=== PATIENT | male | born 1945 | race Caucasian/White ===

== ENCOUNTER 2017-09-07 13:11 | Emergency (ER) | payer OTHER, MEDICARE ==
[~2017-09-07] VITALS: Ht 165.1 cm; Wt 110.3 kg
[~2017-09-07 13:11] MED LIST: ALBU90OI61 INH; ASPI325; B-121000 MC2 PO; DIGO.125 PO; DIGO.25; DIGO.25 PO; DILT300 PO; FELO5CR; FURO20; FURO20 PO; FURO40 PO; GLIP5; HYDCHL25; INS70/30I; INSUASPI SC; INSULANPEN SC; LEVSOD100; LEVSOD100 PO; LISI20; LOSA25 PO; LOSARTAN POTAS100 MG PO; LOVA40; METF500; METF850; METO100; METO100ER; METO100ER PO; METO50ER PO; Micro-K10 MEQ PO; Nitrostat0.4 MG SL; Novolog100 UNIT/2 SC; Pravastatin Sod40 MG PO; SERT100; SPIR25 PO; TAMS.4ER PO; TERA1; TERA5; WARF5; WARF5 PO; WARF7.5 PO; [UNRECOGNIZED DRUG - CODE]; [UNRECOGNIZED DRUG - CODE]; [UNRECOGNIZED DRUG - OTHER]
[2017-09-07] MEDS ORDERED: SPIR25 PO (14:10)
[2017-09-07 14:36] LABS: BASOPHILS ABSOLUTE AUTO 0.04 K/mm3 (0.00-0.23); BASOPHILS PERCENT AUTO 1 % (0-2); EOSINOPHILS PERCENT AUTO 4 % (0-6); Hematocrit 39.6 % (37.0-53.0); Hemoglobin 13.5 g/dL (13.5-17.5); IMMATURE GRAN ABSOLUTE AUTO 0.02 K/mm3 (0.00-0.10); IMMATURE GRAN PERCENT AUTO 0 % (0-1); LYMPHOCYTES ABSOLUTE AUTO 1.43 K/mm3 (0.84-5.20); LYMPHOCYTES PERCENT AUTO 20 % (21-46); MONOCYTES ABSOLUTE AUTO 0.58 K/mm3 (0.16-1.47); MONOCYTES PERCENT AUTO 8 % (4-13); Mean Corpuscular HGB 32.1 pg (26.0-34.0); Mean Corpuscular HGB Conc 34.1 g/dL (31.5-36.5); Mean Corpuscular Volume 94 fL (80-100); Mean Platelet Volume 9.6 fL (9.1-12.4); NEUTROPHILS ABSOLUTE AUTO 4.78 K/mm3 (1.96-9.15); NEUTROPHILS PERCENT AUTO 67 % (41-73); Platelet Count 159 K/mm3 (150-400); RDW Coefficient Variation 13.4 % (11.7-14.2); RDW Standard Deviation 45.8 fL (35.1-46.3); White Blood Cell Count 7.15 K/mm3 (4.00-11.30)
[2017-09-07 14:47] LABS: International Normalized Ratio 3.08; Prothrombin Time Results 33.2 Sec (9.7-11.5)
== END 2017-09-07 16:11 | disposition home or self-care (01) ==
LOC: ER 13:11
PROVIDERS: Emergency Medicine
DX: R04.0 Epistaxis (principal); Z88.8 Allergy status to other drugs, medicaments and biological substances; Z79.01 Long term (current) use of anticoagulants; Z79.899 Other long term (current) drug therapy; Z79.4 Long term (current) use of insulin; E11.9 Type 2 diabetes mellitus without complications; I10 Essential (primary) hypertension; I48.91 Unspecified atrial fibrillation; E78.00 Pure hypercholesterolemia, unspecified
CPT/HCPCS: 30901; 36415; 82947; 85025; 85610; 99283

== ENCOUNTER 2018-07-13 11:45 | Day surgery (SDC) | payer MEDICARE, OTHER ==
[~2018-07-13] VITALS: Ht 167.6 cm; Wt 111.9 kg
[2018-07-13 11:02] LABS: International Normalized Ratio 1.16; Prothrombin Time Results 11.8 Sec (9.7-11.5)
== END 2018-07-13 15:02 | disposition home or self-care (01) ==
LOC: ORSCSDS 11:45
PROVIDERS: Orthopaedic Surgery
PROC: 01N50ZZ Release Median Nerve, Open Approach (ICD-10-PCS; principal; 2018-07-13 13:15)
DX: G56.02 Carpal tunnel syndrome, left upper limb (principal); E11.42 Type 2 diabetes mellitus with diabetic polyneuropathy; I48.91 Unspecified atrial fibrillation; I10 Essential (primary) hypertension; Z95.0 Presence of cardiac pacemaker; E03.9 Hypothyroidism, unspecified; E66.01 Morbid (severe) obesity due to excess calories; Z68.39 Body mass index [BMI] 39.0-39.9, adult; Z79.01 Long term (current) use of anticoagulants; Z79.4 Long term (current) use of insulin; Z79.899 Other long term (current) drug therapy
CPT/HCPCS: 36415; 82947; 83036; 85610; 85730; J0690; J2250; J2370; J2405; J3010; J7120

== ENCOUNTER 2019-10-01 12:25 | Emergency (ER) | payer OTHER, MEDICARE ==
[~2019-10-01] VITALS: Ht 167.6 cm; Wt 100.2 kg
[~2019-10-01 12:25] MED LIST changes: +ELIQUIS5 MG PO; +METOPROLOL TART75 MG PO
[2019-10-01] MEDS ORDERED: CEPH500 PO (13:58)
== END 2019-10-01 14:07 | disposition home or self-care (01) ==
LOC: ER 12:25
DX: S61.052A Open bite of left thumb without damage to nail, initial encounter (principal); L03.012 Cellulitis of left finger; E11.9 Type 2 diabetes mellitus without complications; I48.91 Unspecified atrial fibrillation; E03.9 Hypothyroidism, unspecified; E78.5 Hyperlipidemia, unspecified; I11.0 Hypertensive heart disease with heart failure; I50.9 Heart failure, unspecified; Z87.891 Personal history of nicotine dependence; Z23 Encounter for immunization; Z79.899 Other long term (current) drug therapy; Z79.4 Long term (current) use of insulin; W54.0XXA Bitten by dog, initial encounter
CPT/HCPCS: 73140; 90471; 90714; 99283-25; A9270-GY

== ENCOUNTER 2020-06-19 10:01 | Day surgery (SDC) | payer MEDICARE, OTHER ==
[~2020-06-19] VITALS: Ht 167.6 cm; Wt 104.5 kg
[~2020-06-19 10:01] MED LIST changes: +Aspirin EC81 MG PO; +BASAGLAR K100 UNIT/1 SC; +CEPH500 PO; +ELIQUIS5 M2 PO; +HYDSUL200 PO; +LEVOTHYROXINE100 MCG IM; +METO100 PO; +NITROGLYCERIN0.4 M1 SL; +NOVOLOG FL100 UNIT/3; +OLIVE LEAF EXT250 MG; +PROAIR RESPICL90 MCG INH
== END 2020-06-19 15:20 | disposition home or self-care (01) ==
LOC: ORSCSDS 10:01
PROVIDERS: Orthopaedic Surgery
PROC: 01N50ZZ Release Median Nerve, Open Approach (ICD-10-PCS; principal; 2020-06-19 11:15)
DX: G56.01 Carpal tunnel syndrome, right upper limb (principal); E11.9 Type 2 diabetes mellitus without complications; E03.9 Hypothyroidism, unspecified; I10 Essential (primary) hypertension; E78.5 Hyperlipidemia, unspecified; I48.91 Unspecified atrial fibrillation; Z79.01 Long term (current) use of anticoagulants; I25.10 Atherosclerotic heart disease of native coronary artery without angina pectoris; J44.9 Chronic obstructive pulmonary disease, unspecified; Z87.891 Personal history of nicotine dependence; Z79.899 Other long term (current) drug therapy; Z79.82 Long term (current) use of aspirin; E66.01 Morbid (severe) obesity due to excess calories; Z68.37 Body mass index [BMI] 37.0-37.9, adult
CPT/HCPCS: 82947; J0171; J0690; J1100; J2370; J2405; J2704; J3010; J7120

== ENCOUNTER → 2020-07-05 | Outpatient (CLI) | payer MEDICARE, OTHER | END | disposition home or self-care (01) | LOC: LAB 13:25 | DX: L02.424 Furuncle of left upper limb (principal); L02.423 Furuncle of right upper limb; L08.9 Local infection of the skin and subcutaneous tissue, unspecified; R21 Rash and other nonspecific skin eruption | CPT/HCPCS: 87070; 87077; 87147; 87186; 87205 ==

== ENCOUNTER → 2021-03-08 | Outpatient (CLI) | payer MEDICARE, OTHER | LOC: LAB SHORT 13:58 → LAB 13:58 | DX: D48.5 Neoplasm of uncertain behavior of skin (principal); L82.1 Other seborrheic keratosis; D23.4 Other benign neoplasm of skin of scalp and neck; R23.4 Changes in skin texture; Z88.8 Allergy status to other drugs, medicaments and biological substances | CPT/HCPCS: 88305 ==

== ENCOUNTER → 2021-05-14 | Outpatient (CLI) | payer MEDICARE, OTHER | END | disposition home or self-care (01) | LOC: LAB SHORT 08:50 | DX: D09.8 Carcinoma in situ of other specified sites (principal) | CPT/HCPCS: 88305 ==

== ENCOUNTER 2021-11-11 16:55 | Emergency (ER) | payer OTHER ==
[~2021-11-11] VITALS: Ht 167.6 cm; Wt 86.2 kg
[2021-11-11 17:54] LABS: BASOPHILS ABSOLUTE AUTO 0.02 K/mm3 (0.00-0.23); BASOPHILS PERCENT AUTO 0 % (0-2); EOSINOPHILS ABSOLUTE AUTO 0.25 K/mm3 (0.00-0.68); EOSINOPHILS PERCENT AUTO 3 % (0-6); Hematocrit 22.4 % (37.0-53.0); Hemoglobin 7.1 g/dL (13.5-17.5); IMMATURE GRAN ABSOLUTE AUTO 0.06 K/mm3 (0.00-0.10); IMMATURE GRAN PERCENT AUTO 1 % (0-1); LYMPHOCYTES ABSOLUTE AUTO 0.45 K/mm3 (0.84-5.20); LYMPHOCYTES PERCENT AUTO 6 % (21-46); MONOCYTES ABSOLUTE AUTO 0.84 K/mm3 (0.16-1.47); MONOCYTES PERCENT AUTO 11 % (4-13); Mean Corpuscular HGB 29.3 pg (26.0-34.0); Mean Corpuscular HGB Conc 31.7 g/dL (31.5-36.5); Mean Corpuscular Volume 93 fL (80-100); Mean Platelet Volume 8.9 fL (9.1-12.4); NEUTROPHILS ABSOLUTE AUTO 6.07 K/mm3 (1.96-9.15); NEUTROPHILS PERCENT AUTO 79 % (41-73); Platelet Count 270 K/mm3 (150-400); RDW Coefficient Variation 13.9 % (11.7-14.2); RDW Standard Deviation 47.7 fL (35.1-46.3); Red Blood Cell Count 2.42 M/mm3 (4.30-5.90); White Blood Cell Count 7.69 K/mm3 (4.00-11.30)
[2021-11-11 18:16] LABS: Albumin, Blood 2.8 g/dL (3.4-5.0); Albumin/Globulin Ratio 0.7 (0.8-1.8); Bilirubin, Total 0.6 mg/dL (0.1-1.0); Bun/Creatinine Ratio 28.6 (12.0-20.0); Calcium, Blood 8.4 mg/dL (8.5-10.1); Creatinine, Blood 2.87 mg/dL (0.60-1.20); Globulin, Blood 4.2 g/dL (2.2-4.0); Potassium, Blood 5.3 mmol/L (3.5-5.5)
[2021-11-11] MEDS ORDERED: ONDA4ODT MM (20:25)
[2021-11-11] MEDS ORDERED: CEFD300 PO (20:42)
== END 2021-11-11 20:35 | disposition home or self-care (01) ==
LOC: ER 16:55
PROVIDERS: Student in an Organized Health Care Education/Training Program
DX: I13.0 Hypertensive heart and chronic kidney disease with heart failure and stage 1 through stage 4 chronic kidney disease, or unspecified chronic kidney disease (principal); E11.22 Type 2 diabetes mellitus with diabetic chronic kidney disease; D63.1 Anemia in chronic kidney disease; I50.9 Heart failure, unspecified; N18.9 Chronic kidney disease, unspecified; R11.2 Nausea with vomiting, unspecified; Z88.8 Allergy status to other drugs, medicaments and biological substances; Z79.899 Other long term (current) drug therapy; Z79.4 Long term (current) use of insulin; Z79.82 Long term (current) use of aspirin; I48.91 Unspecified atrial fibrillation; E03.9 Hypothyroidism, unspecified; E78.5 Hyperlipidemia, unspecified; Z87.891 Personal history of nicotine dependence
CPT/HCPCS: 80053; 85025; 93005; 93010; 99284-25; J2405; J7030

== ENCOUNTER → 2021-12-20 | Outpatient (CLI) | payer OTHER ==
[~2021-12-20] MED LIST changes: +CEFD300 PO; +ONDA4ODT MM
== END | disposition home or self-care (01) ==
LOC: LAB SHORT 09:00 → LAB 09:00
DX: N18.30 Chronic kidney disease, stage 3 unspecified (principal); D63.1 Anemia in chronic kidney disease; N25.81 Secondary hyperparathyroidism of renal origin; E55.9 Vitamin D deficiency, unspecified; E78.00 Pure hypercholesterolemia, unspecified; R76.9 Abnormal immunological finding in serum, unspecified; R94.5 Abnormal results of liver function studies; R94.6 Abnormal results of thyroid function studies; G60.9 Hereditary and idiopathic neuropathy, unspecified; D51.8 Other vitamin B12 deficiency anemias; D52.8 Other folate deficiency anemias
CPT/HCPCS: 86335

== ENCOUNTER → 2021-12-21 | Outpatient (CLI) | payer OTHER ==
[2021-12-21 11:38] LABS: Creatinine Urine 54.3 mg/dL (27.00-270.00); Microalbumin, Urine Quant. 23.9 mg/L (0.000-20.000); Protein, Urine Quantitative 5.8 mg/dL (0.0-11.9)
== END ==
LOC: LAB 09:35 → LAB SHORT 09:35 → LAB FUT 12-18 10:50
PROVIDERS: Internal Medicine Nephrology
DX: N18.30 Chronic kidney disease, stage 3 unspecified (principal); D63.1 Anemia in chronic kidney disease; N25.81 Secondary hyperparathyroidism of renal origin; E78.00 Pure hypercholesterolemia, unspecified; E55.9 Vitamin D deficiency, unspecified; D50.9 Iron deficiency anemia, unspecified; D52.8 Other folate deficiency anemias; D51.8 Other vitamin B12 deficiency anemias; R94.6 Abnormal results of thyroid function studies; R94.5 Abnormal results of liver function studies; R76.9 Abnormal immunological finding in serum, unspecified
CPT/HCPCS: 81050; 82043; 82570; 84156

== ENCOUNTER → 2022-05-29 | Outpatient (CLI) | payer MEDICARE, OTHER | END | disposition home or self-care (01) | LOC: LAB SHORT 08:58 → PLD 08:58 | DX: D48.5 Neoplasm of uncertain behavior of skin (principal) | CPT/HCPCS: 88305 ==

== ENCOUNTER 2022-10-01 22:23 | Emergency (ER) | payer MEDICARE, OTHER ==
[~2022-10-01] VITALS: Ht 167.6 cm; Wt 93.4 kg
[~2022-10-01 22:23] MED LIST changes: +ALLO100 PO; +Isosorbide Mono30 MG PO; +METO5 PO; +POTA10T PO; +TORSE20 PO
== END 2022-10-02 01:33 | disposition home or self-care (01) ==
LOC: ER 22:23
DX: R04.0 Epistaxis (principal); I13.0 Hypertensive heart and chronic kidney disease with heart failure and stage 1 through stage 4 chronic kidney disease, or unspecified chronic kidney disease; E11.22 Type 2 diabetes mellitus with diabetic chronic kidney disease; I50.9 Heart failure, unspecified; N18.9 Chronic kidney disease, unspecified; E03.9 Hypothyroidism, unspecified; Z95.5 Presence of coronary angioplasty implant and graft; Z95.0 Presence of cardiac pacemaker; Z88.8 Allergy status to other drugs, medicaments and biological substances; Z79.899 Other long term (current) drug therapy; Z79.890 Hormone replacement therapy; Z79.82 Long term (current) use of aspirin; Z79.01 Long term (current) use of anticoagulants
CPT/HCPCS: 30903; 99282-25

== ENCOUNTER → 2022-11-26 | Outpatient (CLI) | payer MEDICARE | END | disposition home or self-care (01) | LOC: LAB 12:34 → LAB SHORT 12:34 | DX: D48.5 Neoplasm of uncertain behavior of skin (principal) | CPT/HCPCS: 88305 ==

== ENCOUNTER 2023-08-06 12:42 | Inpatient (IN) | payer OTHER ==
[~2023-08-06] VITALS: Ht 175.3 cm; Wt 76.2 kg
[~2023-08-06 12:42] MED LIST changes: +BASAGLAR K100 UNIT/1; -BASAGLAR K100 UNIT/1 SC; -NOVOLOG FL100 UNIT/3; +NOVOLOG FL100 UNIT/3 SC
[2023-08-06 14:13] LABS: BASOPHILS ABSOLUTE AUTO 0.03 K/mm3 (0.00-0.23); BASOPHILS PERCENT AUTO 1 % (0-2); EOSINOPHILS ABSOLUTE AUTO 0.17 K/mm3 (0.00-0.68); EOSINOPHILS PERCENT AUTO 4 % (0-6); Hematocrit 32.8 % (37.0-53.0); Hemoglobin 10.2 g/dL (13.5-17.5); IMMATURE GRAN ABSOLUTE AUTO 0.03 K/mm3 (0.00-0.10); IMMATURE GRAN PERCENT AUTO 1 % (0-1); LYMPHOCYTES PERCENT AUTO 8 % (21-46); MONOCYTES ABSOLUTE AUTO 0.45 K/mm3 (0.16-1.47); MONOCYTES PERCENT AUTO 9 % (4-13); Mean Corpuscular HGB 25.7 pg (26.0-34.0); Mean Corpuscular HGB Conc 31.1 g/dL (31.5-36.5); Mean Corpuscular Volume 83 fL (80-100); Mean Platelet Volume 10.1 fL (9.1-12.4); NEUTROPHILS ABSOLUTE AUTO 3.73 K/mm3 (1.96-9.15); NEUTROPHILS PERCENT AUTO 78 % (41-73); Platelet Count 165 K/mm3 (150-400); RDW Coefficient Variation 22.1 % (11.7-14.2); RDW Standard Deviation 65.1 fL (35.1-46.3); Red Blood Cell Count 3.97 M/mm3 (4.30-5.90); White Blood Cell Count 4.81 K/mm3 (4.00-11.30)
[2023-08-06 14:30] LABS: Albumin/Globulin Ratio 1.1 (0.8-1.8); Bun/Creatinine Ratio 30.1 (12.0-20.0); Calcium, Blood 9.2 mg/dL (8.5-10.1); Creatinine, Blood 2.66 mg/dL (0.60-1.20); Globulin, Blood 3.8 g/dL (2.2-4.0); Potassium, Blood 3.6 mmol/L (3.5-5.5); Total Protein, Blood 7.8 g/dL (6.4-8.2)
[2023-08-06 14:54] LABS: Source, Urine Clean Catch
[2023-08-06 14:56] LABS: Appearance, Urine Clear (Clear); Bilirubin, Urine Neg (Neg); Blood, Urine 3+ (Neg); Glucose Qualitative, Urine Neg (Neg); Ketones, Urine Neg (Neg); Leukocyte Esterase, Urine Neg (Neg); Nitrite, Urine Neg (Neg); Protein, Urine 1+ (Neg); Urobilinogen, Urine NORM (Normal); pH, Urine 6.5 (5.0-8.0)
[2023-08-06 15:04] LABS: Color, Urine Pale Yellow (P-Yellow)
[2023-08-06 15:05] LABS: Bacteria Rare /hpf; Squamous Epithelial Cells Rare /hpf (Few); White Blood Cells, Urine 0-2 /hpf (0-5)
[2023-08-06 15:42] LABS: Influenza A, PCR NEGATIVE (NEGATIVE); Influenza B, PCR NEGATIVE (NEGATIVE); Resp Syncytial Virus, PCR NEGATIVE (NEGATIVE); SARS-Cov-2 (COVID-19) PCR, MMC NEGATIVE (NEGATIVE)
[2023-08-06] MEDS ORDERED: VICTOZA 3-0.6 MG/0.2 SC (19:43)
[2023-08-06 20:53] VITALS: BP 128/58
[2023-08-06] MEDS ORDERED: METO25ER PO (20:56)
[2023-08-06] MEDS ORDERED: OMEP20ER PO (21:00)
--- NOTE | 2023-08-06 21:44 | NUR ---
ADMISSION NOTE MR LEDESMA WAS ADMITTED TO MEDICAL UNIT FROM ER THIS EVENING. HE WAS ASSISTED FROM [facility] TO BED SO HAS NOT BEEN SEEN STANDING. HIS WAS PRESENT UPON ADMISSION. MR LEDESMA IS ORIENTATED TO SELF AND HOSPITAL, NOT TO DATE, SEASON OR REASON FOR BEING HERE. HIS SAID THAT HE HAS BEEN GETTING INCREASINGLY CONFUSED OVER THE LAST WEEK. 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 HE IS NORMALLY ABLE TO WASH AND DRESS HIMSELF AND SHE JUST HELPS HIM WITH HIS SOCKS. HE DENIES ANY DISCOMFORT ON ADMISSION. PER ER REPORT HE WAS CHANGED SHORTLY PRIOR TO TRANSFER AND WAS INCONTINENT OF URINE AND STOOL. HE SWALLOWED WATER EASILY WITHOUT COUGHING. BED LOW, CALL LIGHT IN REACH AND BED ALARM ON.
--- NOTE | 2023-08-07 04:09 | NUR ---
SHIFT SUMMARY SINCE ADMISSION NOTE MR LEDESMA DID STAND AT BEDSIDE WITH 1 PERSON ASSIST, WALKER AND GAIT BELT. INCONTINENT OF URINE X1 AFTER URGENCY. HE SEEMS TO HAVE SLEPT WELL. HE HAS DENIED HAVING PAIN. TOLERATED PO FLUIDS WELL. BED LOW, CALL LIGHT IN REACH, BED ALARM ON.
[2023-08-07 05:14] VITALS: BP 105/51
[2023-08-07 05:52] LABS: Hematocrit 28.5 % (37.0-53.0); Hemoglobin 8.7 g/dL (13.5-17.5); Mean Corpuscular HGB 25.4 pg (26.0-34.0); Mean Corpuscular HGB Conc 30.5 g/dL (31.5-36.5); Mean Corpuscular Volume 83 fL (80-100); Mean Platelet Volume 10.2 fL (9.1-12.4); Platelet Count 117 K/mm3 (150-400); RDW Coefficient Variation 22.4 % (11.7-14.2); RDW Standard Deviation 65.1 fL (35.1-46.3); Red Blood Cell Count 3.43 M/mm3 (4.30-5.90); White Blood Cell Count 3.61 K/mm3 (4.00-11.30)
[2023-08-07 06:10] LABS: Bun/Creatinine Ratio 30.4 (12.0-20.0); Calcium, Blood 8.8 mg/dL (8.5-10.1); Creatinine, Blood 2.5 mg/dL (0.60-1.20); Potassium, Blood 2.9 mmol/L (3.5-5.5)
[2023-08-07 07:51] VITALS: BP 128/56
--- NOTE | 2023-08-07 12:08 | NUR ---
MEDICATION LIST I WAS TOLD IN REPORT THAT THERE ARE SOME DISCREPANCIES. I CALLED THE PATIENT'S AND WENT OVER HIS HOME MEDICATION WITH HER AND UPDATED THE MED REC. I CALLED AND NOTIFIED DR. MEJIA OF MED DISCREPANCIES AND MED CHANGES MADE TO THE MED REC. HE ADVISED TO UPDATE EMAR MED LIST TO MEDICATIONS PATIENT TAKES AT HOME. MEDS THAT WERE ADDED/CHANGED WERE MADE AND REVIEWED WITH DR. MAYER AND PHARMACY TO APPROPRIACY OF PATIENT CARE.
[2023-08-07 13:43] LABS: Percent Saturation 33.9 % (20.0-50.0)
--- NOTE | 2023-08-07 14:52 | NUR ---
Spiritual care visit attempted. Upon receiving a referral for spiritual care, I attempted to visit the patient. The first attempt he had just pulled out his IV line and was bleeding. We visited for a couple minutes before medical staff entered the room. He would like a visit but clearly it was not the time. I will continue to remain available to patient and family.
[2023-08-07 15:33] VITALS: BP 130/60
--- NOTE | 2023-08-07 16:14 | NUR ---
Spiritual Care Visit. Pt. is sitting up in a recliner and welcomes my visit. Pt. is pleasant. Pt. did display evidence of recurring memory lapses. Facilitate a lengthy life review and learn about [place], and his farm property in [place]. While Pt. did not personally ascribe to any specific expression of his los, Pt. was open to Prayer. Prayed for the Pt. and focused upon his upcoming procedure. Pt. verbalized gratitude for the spiritual care visit.
[2023-08-07 16:44] VITALS: BP 131/64
--- NOTE | 2023-08-07 16:45 | NUR ---
Into [facility] via [facility]. History, Chart, Medications and Allergies reviewed before start of procedure.Lungs clear T/O to Auscultation. Patient confirms NPO status and agrees with scheduled surgery.
--- NOTE | 2023-08-07 16:54 | NUR ---
PIV TO LEFT HAND #20-SITE CLEAR AND FLUSHES WELL.
--- NOTE | 2023-08-07 17:25 | NUR ---
08/07/23 1725 Vero Newell History, Chart, Medications and Allergies reviewed before start of procedure.MONITOR INTACT WITH CONTINUOUS PULSE OXIMETRY, CONTINUOUS END TITAL CO2, AND INTERMITTENT BLOOD PRESSURE.3-LEAD EKG REVIEWED WITH PHYSICIAN PRIOR TO START OF PROCEDURE.O2 VIA N/C INTACT THROUGHOUT SEDATION/PROCEDURE.Bite Block Placed.DR. FIERRO PROVIDING ANESTHESIA.
--- NOTE | 2023-08-07 19:17 | NUR ---
SHIFT SUMMARY: CHELE HAS BEEN PLEASANT AND COOPERATIVE WITH CARE. BASED ON REPORT AND WHAT THE PATIENT'S WAS VOICING, HIS ORIENTATION/COGNITION HAS IMPROVED. PATIENT STILL HAD DIFFICULTY WITH THE DATE AND WHERE HE WAS (STATING HE WAS IN A HOSPITAL IN [place]), BUT OVERALL IS AWARE OF THE SITUATION. AFTER LETTING HIM KNOW HE WAS IN A HOSPITAL IN [place] HE UNDERSTOOD AND EXPRESSED CONFUSING ON WHY HE THOUGHT HE WAS IN [place], STATED HE USE TO LIVE THERE. HE UNDERWENT HIS EGD THIS AFTERNOON WITH NO FINDINGS OF A BLEED. THE PATIENT AGREED TO UNDERGO A COLONOSCOPY TOMORROW SO THE PLAN IS TO HAVE HIM BE NPO BESIDES WATER AND THEN NO WATER AT 1300. (NURSE NOTIFY AND ORDER PLACED) HE WILL ALSO BE STARTED GOLYTELY IN THE MORNING IN PREPARATION FOR HIS COLONOSCOPY. NO STOOLS DURING THE SHIFT TO ASSESS FOR TARRY/BLOODY STOOLS. HBG DID IMPROVE 8.6 TO 9.0. HE IS IN BED ALERT, CALL LIGHT WITHIN REACH, NO SIGNS OR SYMPTOMS OF DISTRESS. PLAN OF CARE ONGOING.
[2023-08-07 20:13] VITALS: BP 124/61
[2023-08-08] VITALS (7 sets, daily range): BP systolic 109–146; BP diastolic 50–72
--- NOTE | 2023-08-08 04:19 | NUR ---
SHIFT SUMMARY MR LEDESMA APPEARS TO HAVE SLEPT WELL. HE DENIED PAIN. ORIENTATED TO SELF AND PLACE BUT SEEMED CLEARER IN HIS CONVERSATION AND HE SAID THAT HE FEELS LESS CONFUSED. CONTINENT OF URINE, NO STOOL OVERNIGHT. BED LOW, CALL LIGHT IN REACH, BED ALARM ON.
[2023-08-08 06:07] LABS: BASOPHILS ABSOLUTE AUTO 0.03 K/mm3 (0.00-0.23); BASOPHILS PERCENT AUTO 1 % (0-2); EOSINOPHILS ABSOLUTE AUTO 0.31 K/mm3 (0.00-0.68); EOSINOPHILS PERCENT AUTO 8 % (0-6); Hematocrit 28.9 % (37.0-53.0); Hemoglobin 8.6 g/dL (13.5-17.5); IMMATURE GRAN ABSOLUTE AUTO 0.01 K/mm3 (0.00-0.10); IMMATURE GRAN PERCENT AUTO 0 % (0-1); LYMPHOCYTES ABSOLUTE AUTO 0.69 K/mm3 (0.84-5.20); LYMPHOCYTES PERCENT AUTO 18 % (21-46); MONOCYTES ABSOLUTE AUTO 0.42 K/mm3 (0.16-1.47); MONOCYTES PERCENT AUTO 11 % (4-13); Mean Corpuscular HGB 24.9 pg (26.0-34.0); Mean Corpuscular HGB Conc 29.8 g/dL (31.5-36.5); Mean Corpuscular Volume 84 fL (80-100); Mean Platelet Volume 10.4 fL (9.1-12.4); NEUTROPHILS ABSOLUTE AUTO 2.43 K/mm3 (1.96-9.15); NEUTROPHILS PERCENT AUTO 62 % (41-73); Platelet Count 129 K/mm3 (150-400); RDW Standard Deviation 65.3 fL (35.1-46.3); Red Blood Cell Count 3.45 M/mm3 (4.30-5.90); White Blood Cell Count 3.89 K/mm3 (4.00-11.30)
[2023-08-08 06:30] LABS: Calcium, Blood 8.5 mg/dL (8.5-10.1); Creatinine, Blood 2.3 mg/dL (0.60-1.20); Potassium, Blood 3.2 mmol/L (3.5-5.5)
--- NOTE | 2023-08-08 16:02 | NUR ---
Ambulatory in Day Surgery WITH ASSISTANCE. History, Chart, Medications and Allergies reviewed before start of procedure. Patient confirms NPO status and agrees with scheduled surgery.
--- NOTE | 2023-08-08 16:18 | NUR ---
08/08/23 1618 Adolfo Riggs History, Chart, Medications and Allergies reviewed before start of procedure. MONITOR INTACT WITH CONTINUOUS PULSE OXIMETRY, CONTINUOUS END TITAL CO2, AND INTERMITTENT BLOOD PRESSURE. 3-LEAD EKG REVIEWED WITH PHYSICIAN PRIOR TO START OF PROCEDURE. O2 VIA N/C INTACT THROUGHOUT SEDATION/PROCEDURE.
--- NOTE | 2023-08-08 16:37 | NUR ---
SHIFT SUMMARY: PATIENT STARTED BOWEL PREP FOR HIS COLONOSCOPY AT 0730 TODAY AND TOLERATING AND RESPONDING WELL. HE HAS BEEN INDEPENDENT TO THE BESIDE COMMODE THROUGHOUT THE SHIFT AND USING HIS CALL LIGHT APPROPRIATELY. HE RECEIVED ANOTHER DOSE OF IV POTASSIUM TODAY FOR HYPOKALEMIA. DAY SURGERY ARRIVED AT 1600 TO TAKE PATIENT FOR HIS PROCEDURE TO FURTHER EVALUATE REASONING FOR TARRY STOOL AND DECREASED HBG. (DAY SURGERY CALLED DURING WRITING SHIFT SUMMARY AND ARE ON THEIR WAY WITH THE PATIENT-[id number]) WILL RECEIVE BEDSIDE REPORT WHEN PATIENT ARRIVES.
[2023-08-09 03:44] VITALS: BP 124/56
--- NOTE | 2023-08-09 04:28 | NUR ---
SHIFT SUMMARY LORI WAS ALERT AND ANSWERS ORIENTATION QUESTIONS CORRECTLY, HOWEVER PT DOES SEEM TO STILL HAVE SOME MILD CONFUSION. CSCOPE ON DAYSHIFT YESTERDAY. PER MD NOTE, PT IS PROBABLE DISCHARGE ON DAYSHIFT TODAY. PT HAS NO NEW OR WORSENING COMPLAINTS, NO ACUTE EVENTS TONIGHT, AND NO NOTED CHANGES IN CONDITION THIS SHIFT. PT RESTING IN BED AT A LOW POSITION WITH CALL LIGHT IN REACH.
[2023-08-09 07:18] VITALS: BP 115/57
[2023-08-09 07:57] LABS: Hematocrit 30.3 % (37.0-53.0); Hemoglobin 9.2 g/dL (13.5-17.5)
[2023-08-09 08:29] LABS: Bun/Creatinine Ratio 24.5 (12.0-20.0); Calcium, Blood 8.7 mg/dL (8.5-10.1); Creatinine, Blood 2.37 mg/dL (0.60-1.20); Potassium, Blood 3.7 mmol/L (3.5-5.5)
[2023-08-09] MEDS ORDERED: SPIR25 PO (11:03)
--- NOTE | 2023-08-09 12:21 | NUR ---
DISCHARGE SUMMARY: PT DISCHARGED HOME. PT IN ROOM AT TIME OF DISCHARGE. DISCUSSED DISCHARGE INSTRUCTIONS AND MEDICATIONS. PT/ VU. ASSISTED PT WITH PACKING UP BELONGINGS. ASSISTED PT WITH GETTING DRESSED. PT ESCORTED TO POV VIA WC BY . DECLINED A NURSE ESCORT.
== END 2023-08-09 11:57 | disposition home or self-care (01) | DRG 377 ==
LOC: ER 12:42 → MEDS 19:14 → ENPENDDIS 08-09 10:32 → MEDS 08-09 11:57
PROVIDERS: Emergency Medicine; Internal Medicine; Internal Medicine Gastroenterology; Nurse Practitioner Acute Care; ADMIT Internal Medicine
PROC: 0DJ08ZZ Inspection of Upper Intestinal Tract, Via Natural or Artificial Opening Endoscopic (ICD-10-PCS; 2023-08-07)
PROC: 0DBL8ZZ Excision of Transverse Colon, Via Natural or Artificial Opening Endoscopic (ICD-10-PCS; 2023-08-08)
PROC: 0DBK8ZZ Excision of Ascending Colon, Via Natural or Artificial Opening Endoscopic (ICD-10-PCS; principal; 2023-08-08 16:00)
DX: K92.1 Melena (principal); G92.8 Other toxic encephalopathy; D61.818 Other pancytopenia; N18.4 Chronic kidney disease, stage 4 (severe); I13.0 Hypertensive heart and chronic kidney disease with heart failure and stage 1 through stage 4 chronic kidney disease, or unspecified chronic kidney disease; I50.32 Chronic diastolic (congestive) heart failure; I48.20 Chronic atrial fibrillation, unspecified; E11.22 Type 2 diabetes mellitus with diabetic chronic kidney disease; G30.9 Alzheimer's disease, unspecified; F02.80 Dementia in other diseases classified elsewhere, unspecified severity, without behavioral disturbance, psychotic disturbance, mood disturbance, and anxiety; L05.91 Pilonidal cyst without abscess; E66.01 Morbid (severe) obesity due to excess calories; E78.5 Hyperlipidemia, unspecified; E03.9 Hypothyroidism, unspecified; M10.9 Gout, unspecified; K57.30 Diverticulosis of large intestine without perforation or abscess without bleeding; G47.33 Obstructive sleep apnea (adult) (pediatric); J44.9 Chronic obstructive pulmonary disease, unspecified; M81.0 Age-related osteoporosis without current pathological fracture; N40.0 Benign prostatic hyperplasia without lower urinary tract symptoms; Z79.01 Long term (current) use of anticoagulants; Z95.810 Presence of automatic (implantable) cardiac defibrillator; Z79.890 Hormone replacement therapy; Z79.82 Long term (current) use of aspirin; Z79.4 Long term (current) use of insulin; Z87.891 Personal history of nicotine dependence; Z68.31 Body mass index [BMI] 31.0-31.9, adult; Z11.52 Encounter for screening for COVID-19
CPT/HCPCS: 0241U; 36415; 70450; 80048; 80053; 81001; 82140; 82728; 82947; 83540; 83550; 85014; 85018; 85025; 85027; 86850; 86900; 86901; 93005; 93010; 96374; 99285-25; A9270; C9113; J1815; J2704; J3480; J7050; J7120

== ENCOUNTER 2023-08-28 11:50 | Inpatient (IN) | payer OTHER ==
[~2023-08-28] VITALS: Ht 185.4 cm; Wt 93.2 kg
[2023-08-28] VITALS (40 sets, daily range): BP systolic 75–125; BP diastolic 39–72
[~2023-08-28 11:50] MED LIST changes: -BASAGLAR K100 UNIT/1; +BASAGLAR K100 UNIT/1 SC; +METO25ER PO; +OMEP20ER PO; +VICTOZA 3-0.6 MG/0.2 SC
[2023-08-28 12:10] LABS: Calcium, Ionized (POC) 1.03 mmol/L (1.10-1.46); Chloride (POC) 102 mmol/L (98-108); Creatinine (POC) 4.1 mg/dL (0.8-1.3); Glucose (ISTAT POC) 189 mg/dL (70-99); Hemoglobin (POC) 11.2 g/dL (13.5-17.5); Sodium (POC) 131 mmol/L (135-148); Total CO2 (POC) 14 mmol/L (21-32)
[2023-08-28] MEDS ORDERED: dilTIAZem HCL 125 MG in Dextrose 5% 100 ML IV SCH (12:15)
[2023-08-28] MEDS ORDERED: Diltiazem HCl 5 MG / ML 5ML Vial IV ONE (12:15)
[2023-08-28 12:24] LABS: PCO2 Arterial 27.7 mmHg (35-45); PO2 Arterial 310 mmHg (80-100); pH Blood Arterial 7.18 (7.35-7.45)
[2023-08-28] MEDS ORDERED: propofoL 100 ML IV SCH (12:25)
[2023-08-28 12:27] LABS: BASOPHILS ABSOLUTE AUTO 0.09 K/mm3 (0.00-0.23); BASOPHILS PERCENT AUTO 1 % (0-2); EOSINOPHILS ABSOLUTE AUTO 0.23 K/mm3 (0.00-0.68); EOSINOPHILS PERCENT AUTO 1 % (0-6); Hemoglobin 9.8 g/dL (13.5-17.5); IMMATURE GRAN ABSOLUTE AUTO 0.17 K/mm3 (0.00-0.10); IMMATURE GRAN PERCENT AUTO 1 % (0-1); LYMPHOCYTES ABSOLUTE AUTO 0.66 K/mm3 (0.84-5.20); LYMPHOCYTES PERCENT AUTO 3 % (21-46); MONOCYTES ABSOLUTE AUTO 0.98 K/mm3 (0.16-1.47); MONOCYTES PERCENT AUTO 5 % (4-13); Mean Corpuscular HGB 26.7 pg (26.0-34.0); Mean Corpuscular HGB Conc 29.7 g/dL (31.5-36.5); Mean Corpuscular Volume 90 fL (80-100); Mean Platelet Volume 10.8 fL (9.1-12.4); NEUTROPHILS PERCENT AUTO 89 % (41-73); Platelet Count 206 K/mm3 (150-400); RDW Standard Deviation 74.3 fL (35.1-46.3); Red Blood Cell Count 3.67 M/mm3 (4.30-5.90); White Blood Cell Count 19.73 K/mm3 (4.00-11.30)
[2023-08-28 12:42] LABS: International Normalized Ratio 1.5; Prothrombin Time Results 15.4 Sec (9.7-11.5)
[2023-08-28] MEDS ORDERED: NS 1,000 ML IV SCH ×2 (12:45→14:45)
[2023-08-28 12:49] LABS: Albumin, Blood 3.1 g/dL (3.4-5.0); Albumin/Globulin Ratio 0.8 (0.8-1.8); Bilirubin, Total 1.3 mg/dL (0.1-1.0); Bun/Creatinine Ratio 24.5 (12.0-20.0); Calcium, Blood 8.6 mg/dL (8.5-10.1); Creatinine, Blood 3.31 mg/dL (0.60-1.20); Potassium, Blood 4.8 mmol/L (3.5-5.5); Total Protein, Blood 7.1 g/dL (6.4-8.2)
[2023-08-28] MEDS ORDERED: Azithromycin 500 MG in NS 250 ML IV ONE (13:40)
[2023-08-28] MEDS ORDERED: CefTRIAXone Sodium 1,000 MG in NS 50 ML IV ONE (13:40)
[2023-08-28 14:34] LABS: Appearance, Urine Clear (Clear); Bilirubin, Urine Neg (Neg); Blood, Urine Neg (Neg); Color, Urine Yellow (P-Yellow); Glucose Qualitative, Urine Neg (Neg); Ketones, Urine Neg (Neg); Leukocyte Esterase, Urine Neg (Neg); Nitrite, Urine Neg (Neg); Protein, Urine 1+ (Neg); Urobilinogen, Urine NORM (Normal)
[2023-08-28] MEDS ORDERED: Acetaminophen 325 MG TABLET PO PRN (14:40)
[2023-08-28] MEDS ORDERED: FLU VACC QS2023-24(6MOS UP)/PF 60 MCG/0.5 ML SYRINGE IM SCH (14:40)
[2023-08-28] MEDS ORDERED: FentaNYL Citrate 50 MCG/ML 2 ML Injection IV PRN (14:50)
[2023-08-28 15:56] LABS: Source, Urine Foley catheter
[2023-08-28 15:57] LABS: Influenza A, PCR NEGATIVE (NEGATIVE); Influenza B, PCR NEGATIVE (NEGATIVE); Resp Syncytial Virus, PCR NEGATIVE (NEGATIVE); SARS-Cov-2 (COVID-19) PCR, MMC NEGATIVE (NEGATIVE)
[2023-08-28 16:16] LABS: Source, Urine Foley catheter
[2023-08-28 16:21] LABS: Appearance, Urine Clear (Clear); Bilirubin, Urine Neg (Neg); Blood, Urine 1+ (Neg); Color, Urine Yellow (P-Yellow); Glucose Qualitative, Urine Neg (Neg); Ketones, Urine Neg (Neg); Leukocyte Esterase, Urine Neg (Neg); Nitrite, Urine Neg (Neg); Protein, Urine 1+ (Neg); Specific Gravity, Urine 1.015 (1.003-1.022); Urobilinogen, Urine NORM (Normal)
[2023-08-28 16:30] LABS: Bacteria Rare /hpf; Hyaline Casts 0-2 /lpf (0-2); Squamous Epithelial Cells Rare /hpf (Few); White Blood Cells, Urine 0-2 /hpf (0-5)
[2023-08-28 16:48] LABS: PCO2 Arterial 17.9 mmHg (35-45); PO2 Arterial 142 mmHg (80-100); pH Blood Arterial 7.25 (7.35-7.45)
[2023-08-28] MEDS ORDERED: Sodium Bicarb 8.4% Inj 150 MEQ in Dextrose 5% 1,000 ML IV SCH (17:15)
[2023-08-28] MEDS ORDERED: Dose Adjust by Pharmacy XX STA (17:26)
[2023-08-28] MEDS ORDERED: Heparin Sodium,Porcine/0.5 NS 500 ML IV SCH (17:30)
[2023-08-28] MEDS ORDERED: Insulin Regular 100 UNIT/ML 10ML Vial SC SCH ×2 (18:00)
--- NOTE | 2023-08-28 18:21 | NUR ---
Initial palliative care consult: John is an 78 year old who was just admitted from the ER to ICU 4. He is currently on a vent and requiring pressor support for his blood pressure. He received CPR in the ER this afternoon. He has a history of DM type 2 on insulin, HTN, a-fib with RVR, HLD, hypothyroidism, BPH, CHR, anemia, CKD, GI bleed, dementia and a TAVR. His reports that she has noticed a slow decline in his overall health over the past year however since April 2023 it has been a more rapid decline. They live on a ranch in [place]. They have assistance from a friend to help manage their ranch. They also spend their contreras from November to April in [place] working their gold [place]. John has four step children from his former marriage, no biological children. Josefina has updated the three step children that he has stayed in contact with. Josefina reports that Alonzo has been more weak recently. She reports he has poor ST memory. He becomes SOB with exertion quicker than he used to. Josefina believes it is likely due to his heart. Josefina reports that John had a fall at home two days ago and they had to call a friend to help him come get up. He usually uses a walker to ambulate in their home. Discussed code status and current wishes. Josefina states that she and John have been together since 2010 after they both lost their spouses. She reports that he would want to live, however he would not want to live on machines shelter. John has told her that he would not want to do dialysis either. "He would not want to be bedbound." She is tearful at times and states "It is hard to see him like this." Encouraged self care. She reports that she has help from friends and has grown children of her own for support. Current plan is for continued full code status at this time. As testing is performed and more information is collected, Josefina stated she will be open to discussing a plan of care going forward. She verbalized her understanding that he is critically ill at this time. PC to remain available to assist with symptom management and advanced care planning for John in the coming days.
--- NOTE | 2023-08-28 18:44 | NUR ---
Shift summary. Pt arrived to ICU at approximately 1540, on ventilator, levophed infusing at 5 mcg/min, propofol 5 mcg/kg/min. Pt unresponsive, no restraints. PICC placed YUMIKO for levophed infusion. Singh in place. at bedside with palliative care nurse this evening. Bicarb infusion started, infusing at 75 ml/hr, levo titrated up to 10 mcg/min, propofol up to 10 mcg/kg/min, heparin started at 15 unit/kg/hr. See flowchart. Echo completed. See chart for further details, will report off to nightshift RN.
[2023-08-28 20:25] LABS: Hematocrit 31.4 % (37.0-53.0); Hemoglobin 9.4 g/dL (13.5-17.5); Mean Corpuscular HGB 26.3 pg (26.0-34.0); Mean Corpuscular HGB Conc 29.9 g/dL (31.5-36.5); Mean Corpuscular Volume 88 fL (80-100); Mean Platelet Volume 10.2 fL (9.1-12.4); NRBC ABSOLUTE 0.06 K/mm3 (0.00-0.02); NRBC Auto 0.2 /100 WBC (0.0-0.2); Platelet Count 168 K/mm3 (150-400); RDW Coefficient Variation 22.8 % (11.7-14.2); RDW Standard Deviation 72.5 fL (35.1-46.3); Red Blood Cell Count 3.57 M/mm3 (4.30-5.90)
[2023-08-28] MEDS ORDERED: Hydrogen Peroxide 1.5 % Solution MT SCH (20:25)
--- NOTE | 2023-08-28 20:34 | NUR ---
INITIAL NOTE Report received earlier, patient minimally responsive to pain, gag/cough reflex intact with deep suction, pupils reactive/sluggish, no additional responses, does appear weaker on left side; pale skin, cold. Present vent settings A/C VC+ 30% FiO2, Peep 5, rr 16, TV 500. Weak pulses radially, doppler to feet/ankles. Distant auscultation, regular rate/rhythm. Active BT, Singh in place with minimal output, OG clamped, set to low intermittent suction presently. Drips in place, infusing. Labs sent, pending results to call Dr. Rosas. Echo performed earlier, spoke with cardiology and discussed plan earlier. CBG stable earlier as well, turned patient, mepilex placed earlier to low back. Assessment in progress.
[2023-08-28 20:48] LABS: BAND PERCENT MAN 14 % (0-8); BASOPHILS PERCENT MAN 0 % (0-2); EOSINOPHILS PERCENT MAN 0 % (0-6); LYMPHOCYTES ABSOLUTE MAN 1.53 K/mm3 (0.84-5.20); LYMPHOCYTES PERCENT MAN 5 % (21-46); MONOCYTES ABSOLUTE MAN 0.92 K/mm3 (0.16-1.47); MONOCYTES PERCENT MAN 3 % (4-13); NEUTROPHILS ABSOLUTE MAN 28.24 K/mm3 (1.96-9.15); SEG NEUTROPHILS PERCENT MAN 78 % (41-73); TOTAL CELLS COUNTED 100
[2023-08-28 20:54] LABS: Magnesium, Blood 2.8 mg/dL (1.6-2.4)
[2023-08-28 21:15] LABS: Albumin, Blood 2.5 g/dL (3.4-5.0); Albumin/Globulin Ratio 0.8 (0.8-1.8); Bilirubin, Total 1.4 mg/dL (0.1-1.0); Bun/Creatinine Ratio 21.8 (12.0-20.0); Creatinine, Blood 3.94 mg/dL (0.60-1.20); Globulin, Blood 3.3 g/dL (2.2-4.0); Phosphorus, Blood 5.6 mg/dL (2.5-4.9); Potassium, Blood 4.8 mmol/L (3.5-5.5); Total Protein, Blood 5.8 g/dL (6.4-8.2)
[2023-08-28] MEDS ORDERED: Calcium Chloride 10% 2,000 MG in NS 100 ML IV ONE (21:35)
[2023-08-28] MEDS ORDERED: Vasopressin 50 UNITS in NS 50 ML IV SCH (21:35)
[2023-08-28] MEDS ORDERED: Magnesium Sulfate 500 MG / ML 2ML Vial XX ONE (23:05)
[2023-08-28] MEDS ORDERED: Etomidate 2MG / ML 10ML Vial XX ONE (23:05)
[2023-08-28] MEDS ORDERED: SuccINYLCHOLINE Chloride 100 MG/5 ML 5MLSYR IV ONE (23:05)
[2023-08-28] MEDS ORDERED: Sodium Bicarb 8.4% 1 MEQ/ML 50 ML Vial IV ONE (23:05)
[2023-08-29] VITALS (96 sets, daily range): BP systolic 77–135; BP diastolic 42–75
[2023-08-29] MEDS ORDERED: Hydrogen Peroxide 1.5 % Solution MT SCH
[2023-08-29] MEDS ORDERED: Dose Adjust by Pharmacy XX STA ×2 (00:44→08:10)
[2023-08-29 03:54] LABS: Hematocrit 27.5 % (37.0-53.0); Hemoglobin 8.5 g/dL (13.5-17.5); Mean Corpuscular HGB 26.2 pg (26.0-34.0); Mean Corpuscular HGB Conc 30.9 g/dL (31.5-36.5); Mean Corpuscular Volume 85 fL (80-100); Mean Platelet Volume 10.2 fL (9.1-12.4); NRBC ABSOLUTE 0.02 K/mm3 (0.00-0.02); NRBC Auto 0.1 /100 WBC (0.0-0.2); Platelet Count 107 K/mm3 (150-400); RDW Coefficient Variation 22.6 % (11.7-14.2); RDW Standard Deviation 69.7 fL (35.1-46.3); Red Blood Cell Count 3.24 M/mm3 (4.30-5.90); White Blood Cell Count 16.28 K/mm3 (4.00-11.30)
[2023-08-29 04:08] LABS: Bun/Creatinine Ratio 23.2 (12.0-20.0); Calcium, Blood 8.6 mg/dL (8.5-10.1); Creatinine, Blood 3.75 mg/dL (0.60-1.20); Potassium, Blood 4.9 mmol/L (3.5-5.5)
[2023-08-29 04:09] LABS: International Normalized Ratio 2.58; Prothrombin Time Results 25.7 Sec (9.7-11.5)
[2023-08-29 04:37] LABS: BAND PERCENT MAN 14 % (0-8); BASOPHILS PERCENT MAN 0 % (0-2); EOSINOPHILS PERCENT MAN 0 % (0-6); LYMPHOCYTES ABSOLUTE MAN 0.48 K/mm3 (0.84-5.20); LYMPHOCYTES PERCENT MAN 3 % (21-46); MONOCYTES ABSOLUTE MAN 0.32 K/mm3 (0.16-1.47); MONOCYTES PERCENT MAN 2 % (4-13); NEUTROPHILS ABSOLUTE MAN 15.46 K/mm3 (1.96-9.15); SEG NEUTROPHILS PERCENT MAN 81 % (41-73); TOTAL CELLS COUNTED 100
[2023-08-29] MEDS ORDERED: Pantoprazole Sodium 40 MG Injection IV SCH (06:00)
--- NOTE | 2023-08-29 06:34 | NUR ---
SHIFT SUMMARY Overnight initially Vasopressin added for BP support, able to titrate down on Levophed, later turned off Propofol for SAT, as patient unable to awaken, unable to follow commands, does have some spontaneous movements to sensation, moved stomach, moved feet/legs, random grasp left hand, but unable to open eyes and does not track visually. Propofol remained off, titrated Levophed to 6 mcg/min, Vasopressin to 0.04 units/min, and Dobutamine at 4 mcg/kg/min. Output increased over shift, Heparin increased earlier to 16 units/kg/hr for aPTT 55.7. VS otherwise stable, patient had medium dark BM earlier, soft/loose. Linens changed, patient repositioned, oral cares performed as ordered.
--- NOTE | 2023-08-29 07:29 | NUR ---
[place] of Care: Care assumed at 0700hr. Patient intubated, no sedation, propofol gtt stopped at 0330hr per NOC RN. No response to verbal stimuli, withdraws extremities to painful stimuli. Slight decorticate posturing to noxious stimuli (i.e oral or ET suctioning). Positive gag, cough, and plantar reflex. Pupils equal and reactive to light, but patient has slight gaze to the right. Overbreathing back-up rate on ventilator. Vent to AC 16/500/5/30%, spO2 100%, tolerating vent without difficulty. PICC line to YUMIKO patent and intact. Peripheral IV's x2 patent and intact. Singh cath patent and intact, draining clear yellow urine. Currently on levophed gtt at 6mcg/min, Dobutamine gtt at 6 mcg/kg/min, and vasopressin gtt at set rate per EMAR. BP stable with MAP's in the 70's. Heart rate/rhythm shows A-fibb with rate in the 80's-90's. Plan to discuss head CT this morning with Dr. Patel r/t neuro status. Will continue to monitor.
[2023-08-29] MEDS ORDERED: NS 250 ML IV PRN (08:05)
[2023-08-29] MEDS ORDERED: CefTRIAXone Sodium 1,000 MG in NS 50 ML IV SCH (09:00)
--- NOTE | 2023-08-29 09:20 | NUR ---
[place] of Care: Care assumed at 0700hr. Patient sleeping until approx 0800hr. Woke to fully alert and oriented. VSS. Denies pain, discomfort, SOB, or dyspnea. CIWA of 0. Ate 100% of breakfast without difficulty. Powerglide to YUMIKO patent and intact. Stand-by assist in room, ambulates without difficulty. Call light in reach, makes needs known. Will continue to monitor.
--- NOTE | 2023-08-29 10:36 | NUR ---
Spiritual Care Visit. Pt. is intubated and not responsive. Spouse is at bedside and welcomes my visit. Facilitate a life review with the Spouse. Listen with empathy and a calming presence. Spouse displays evidence of understanding the serious nature of the Pts. condition. Tears flow appropriately from the spouse and pastoral care is provided. Soupse displays evidence of engagement and awareness. Prayed for Pt. and spouse. Spouse verbalized gratitude for the the spiritual care visit.
[2023-08-29 11:46] LABS: PCO2 Arterial 27.9 mmHg (35-45); PO2 Arterial 110 mmHg (80-100); pH Blood Arterial 7.48 (7.35-7.45)
[2023-08-29 12:32] LABS: Albumin, Blood 2.4 g/dL (3.4-5.0); Albumin/Globulin Ratio 0.8 (0.8-1.8); Bilirubin, Direct 0.6 mg/dL (0.0-0.3); Bilirubin, Indirect 0.4 mg/dL (0.1-0.7); Bun/Creatinine Ratio 24.2 (12.0-20.0); Calcium, Blood 8.1 mg/dL (8.5-10.1); Creatinine, Blood 3.56 mg/dL (0.60-1.20); Globulin, Blood 2.9 g/dL (2.2-4.0); Magnesium, Blood 2.4 mg/dL (1.6-2.4); Phosphorus, Blood 5.3 mg/dL (2.5-4.9); Potassium, Blood 4.5 mmol/L (3.5-5.5); Total Protein, Blood 5.3 g/dL (6.4-8.2)
[2023-08-29] MEDS ORDERED: Magnesium Hydroxide Conc 10 ML UDC PT PRN (15:55)
[2023-08-29] MEDS ORDERED: Bisacodyl 10 MG Supp PR PRN (15:55)
[2023-08-29] MEDS ORDERED: Docusate Sodium 100 MG UDC PT PRN (15:55)
--- NOTE | 2023-08-29 17:50 | NUR ---
Shift Summary: No significant changes throughout shift. No improvements in neurological status, remains off sedation. Some spontaneous movement of BLE's, but continues to not follow any commands or open eyes. GAG, cough, plantar, and pupil constriction remain intact. Continues to overbreathe back-up rate of ventilator. VSS remain stable, continues on low dose levophed, dobutamine, and vasopressin gtt's (see flowsheet). Singh cath remains patent and intact, approx 750ml output. TF started per EMAR at approx 1730hr. at bedside for majority of shift, all questions answered to her satisfaction. Will continue to monitor until report to NOC shift RN.
[2023-08-29] MEDS ORDERED: Insulin Regular 100 UNIT/ML 10ML Vial SC SCH (20:00)
--- NOTE | 2023-08-29 20:47 | NUR ---
ASSUMPTION OF CARE BEDSIDE SHIFT REPORT RECEIVED FROM NATHAN RN. PT RESTING IN BED, INTUBATED BUT NOT SEDATED. PT RESPONSIVE TO PAINFUL STIMULI, WITHDRAWLS LOWER EXTREMITITES. PT MOVES LOWER EXTREMITIES SPONTANEOUSLY, GRIMACES OCCASIONALLY AND MOVES MOUTH. PT DOES NOT OPEN EYES OR FOLLOW COMMANDS. PUPILS EQUAL ROUND AND REACTIVE TO LIGHT. TEMPERATURE CURRENTLY 99.7. HR 90-100'S AFIB. LEVOPHED INFUSING AT 4 MCG/MIN, DOBUTAMINE INFUSING AT 4 MCG/KG/MIN, AND VASOPRESSIN INFUSING AT 0.04 UNITS/MIN TO MAINTAIN MAP >65. LUNG SOUNDS COARSE THROUGHOUT, ETT TUBE IN PLACE, 7.5, 25 @ TEETH. VENT SETTINGS AC/VC+ 16/500/5/30%, OXYGEN SATURATION >95%. ABDOMEN SOFT AND ROUND, BOWEL TONES HYPOACTIVE BUT PRESENT IN ALL FOUR QUADRANTS. TWOCAL TF INFUSING AT 25MLS/HR WITH 30ML Q4H FLUSH, GOAL RATE IS 40MLS/HR. TEMP XAVIER IN PLACE DRAINING YELLOW URINE TO GRAVITY. PICC LINE IN PLACE INFUSING, NS INFUSING TKO. PIV TO RIGHT HAND SL, PIV TO LAC SL. BROWN DISCOLORATION NOTED TO BLE. BED IN LOWEST POSITION, CARE CONTINUES.
[2023-08-29] MEDS ORDERED: Insulin NPH 100 Unit / ML 10ML Vial SC SCH (21:00)
[2023-08-29] MEDS ORDERED: CefTRIAXone Sodium 2,000 MG in NS 100 ML IV SCH (21:00)
[2023-08-30] VITALS (98 sets, daily range): BP systolic 91–138; BP diastolic 46–72
[2023-08-30 04:39] LABS: Hematocrit 25.2 % (37.0-53.0); Mean Corpuscular HGB 26.2 pg (26.0-34.0); Mean Corpuscular HGB Conc 31.7 g/dL (31.5-36.5); Mean Corpuscular Volume 83 fL (80-100); Mean Platelet Volume 11.4 fL (9.1-12.4); NRBC ABSOLUTE 0.02 K/mm3 (0.00-0.02); NRBC Auto 0.2 /100 WBC (0.0-0.2); Platelet Count 84 K/mm3 (150-400); RDW Coefficient Variation 22.5 % (11.7-14.2); RDW Standard Deviation 67.7 fL (35.1-46.3); Red Blood Cell Count 3.05 M/mm3 (4.30-5.90); White Blood Cell Count 10.86 K/mm3 (4.00-11.30)
[2023-08-30 04:44] LABS: International Normalized Ratio 1.64; Prothrombin Time Results 16.7 Sec (9.7-11.5)
[2023-08-30 04:52] LABS: Anion Gap 6 mmol/L (6-16); Blood Urea Nitrogen 84 mg/dL (8-24); Bun/Creatinine Ratio 26.3 (12.0-20.0); CO2, Blood 25 mmol/L (21-32); Calcium, Blood 8.1 mg/dL (8.5-10.1); Chloride, Blood 102 mmol/L (98-108); Creatinine, Blood 3.19 mg/dL (0.60-1.20); Glomerular Filtration Rate 19 (60-); Glucose, Blood 299 mg/dL (70-99); Magnesium, Blood 2.5 mg/dL (1.6-2.4); Phosphorus, Blood 3.8 mg/dL (2.5-4.9); Sodium, Blood 133 mmol/L (136-145); Vancomycin, Random 18.1 ug/mL
[2023-08-30 05:12] LABS: BAND PERCENT MAN 9 % (0-8); BASOPHILS PERCENT MAN 1 % (0-2); EOSINOPHILS PERCENT MAN 1 % (0-6); LYMPHOCYTES ABSOLUTE MAN 0.43 K/mm3 (0.84-5.20); LYMPHOCYTES PERCENT MAN 4 % (21-46); MONOCYTES ABSOLUTE MAN 1.08 K/mm3 (0.16-1.47); MONOCYTES PERCENT MAN 10 % (4-13); NEUTROPHILS ABSOLUTE MAN 9.12 K/mm3 (1.96-9.15); SEG NEUTROPHILS PERCENT MAN 75 % (41-73); TOTAL CELLS COUNTED 100
--- NOTE | 2023-08-30 06:23 | NUR ---
SHIFT SUMMARY PT RESTING IN BED, INTUBATED BUT NOT SEDATED. PT WITHDRAWLS FROM PAINFUL STIMULI IN ALL FOUR EXTREMITES, PT MOVES BLE SPONTANEOUSLY. PT OPENS EYES SPONTANEOUSLY AT TIMES BUT DOES NOT MAKE EYE CONTACT OR TRACK, PUPILS EQUAL ROUND AND REACTIVE TO LIGHT. PT GRIMACES OCCASIONALLY AND OPENS AND CLOSES MOUTH. PT DOES NOT FOLLOW COMMANDS. HR 100-110'S AFIB, LEVOPHED INFUSING AT 4MCG/MIN, DOBUTAMINE INFUSING AT 4MCG/KG/MIN TO MAINTAIN MAP >65. VASOPRESSIN ON SB. 7.5 ETT TUBE TO VENT. VENT SETTINGS AC/VC+ 16/500/5/30%, OXYGEN SATURATION >95%, LUNG SOUNDS COARSE THROUGHOUT. MODERATE AMOUNT OF ORAL SECRETIONS NOTED. ABDOMEN SOFT AND ROUND, BOWEL TONES HYPOACTIVE BUT PRESENT IN ALL FOUR QUADRANTS. TWOCAL TF INFUSING AT GOAL RATE OF 40MLS/HR WITH 30ML Q4H FLUSH. TEMP XAVIER PATENT DRAINING TO GRAVITY. PICC LINE IN PLACE TO YUMIKO INFUISNG, NS INFUSING TKO, PIV TO LEFT AC AND RIGHT HAND SL. BROWN DISCOLORATION NOTED TO BLE, BRUISING TO PT BACK AND RIGHT FLANK. BED IN LOWEST POSITION, CARE CONTINUES.
[2023-08-30] MEDS ORDERED: Vancomycin HCL 1,000 MG in NS 100 ML IV ONE (07:40)
--- NOTE | 2023-08-30 10:16 | NUR ---
SHIFT ASSESSMENT ASSUMED CARE OF PT @ 0700, BEDSIDE REPORT RECEIVED FROM NOC NURSE. PT INTUBATED, NOT SEDATED, OPENS EYES BUT NOT FOLLOWING COMMANDS. MOVING BOTH LEGS AND L ARM BUT NOT TO COMMAND. VENT SETTINGS ACVC-16/500/30/5 c SATS >90%. DOBUTAMINE & LEVOPHED INFUSING, SEE FLOWSHEET. TEMP PROBE XAVIER DRAINING LISETH URINE. TF INFUSING @ GOAL. 1-LOOSE BM THIS AM. PTS SPOUSE UPDATED VIA PHONE THIS AM.
[2023-08-30] MEDS ORDERED: Dose Adjust by Pharmacy XX STA ×2 (14:04→22:02)
[2023-08-30] MEDS ORDERED: Heparin Sodium,Porcine/0.5 NS 500 ML IV SCH (14:05)
[2023-08-30] MEDS ORDERED: Insulin Regular 100 UNIT/ML 10ML Vial SC SCH (18:00)
[2023-08-30] MEDS ORDERED: Insulin Human Regular 100 UNIT/ML 10ML Vial SC SCH (18:00)
--- NOTE | 2023-08-30 18:16 | NUR ---
SHIFT SUMMARY PT REMAINS INTUBATED, OFF SEDATION. NOT FOLLOWING COMMANDS, DOES OPEN EYES TO VERBAL STIMULI. VENT SETTINGS REMAIN THE SAME. DOBUTAMINE GTT @ 4MCG/KG/MIN, LEVO AND VASO OFF, MAP >65. HEPARIN INFUSING AT PRESCRIBED RATE. TF CONTINUES @ GOAL, 1 LOOSE BM TODAY. TEMP PROBE XAVIER DRAINING YELLOW URINE. SPOUSE AT BEDSIDE FOR MOST OF THE DAY, UPDATED BY THIS RN AND DR. BAIG.
--- NOTE | 2023-08-30 20:46 | NUR ---
ASSUMPTION OF CARE BEDSIDE SHIFT REPORT RECEIVED FROM NATHAN RN. PT RESTING IN BED, INTUBATED BUT NOT SEDATED. PT FAINTLY MOVES LEFT ARM AND BLE SPONTANEOUSLY, WITHDRAWLS ALL EXTREMITIES TO PAINFUL STIMULI. PT OPENS EYES OCCASIONALLY BUT DOES NOT TRACK OR FOLLOW COMMANDS. HR 90-100'S AFIB, DOBUTAMINE INFUSING AT 4MCGKG/MIN TO MAINTAIN MAP >65. 7.5 ETT TUBE, VENT SETTINGS AC/VC 16/500/5/30%, OXYGEN SATURATION >95%. PT LUNG SOUNDS CLEAR, MODERATE AMOUNT OF ORAL SECRETIONS NOTED. ABDOMEN SOFT AND ROUND, OG TUBE IN PLACE WITH TWOCAL TF INFUSING AT GOAL RATE OF 40MLS/HR WITH 30ML Q4H FLUSH. TEMP XAVIER IN PLACE DRAINING YELLOW URINE TO GRAVITY. PICC LINE IN PLACE TO YUMIKO INFUSING. HEPARIN INFUSING AT 16UNITS/KG/HR, NS TKO. PIV TO LAC AND RIGHT HAND SL. BED IN LWOEST POSITION, CARE CONTINUES.
[2023-08-31] VITALS (93 sets, daily range): BP systolic 102–131; BP diastolic 50–81
[2023-08-31 04:27] LABS: BASOPHILS ABSOLUTE AUTO 0.03 K/mm3 (0.00-0.23); BASOPHILS PERCENT AUTO 0 % (0-2); EOSINOPHILS ABSOLUTE AUTO 0.23 K/mm3 (0.00-0.68); EOSINOPHILS PERCENT AUTO 3 % (0-6); Hematocrit 24.1 % (37.0-53.0); Hemoglobin 7.7 g/dL (13.5-17.5); IMMATURE GRAN ABSOLUTE AUTO 0.09 K/mm3 (0.00-0.10); IMMATURE GRAN PERCENT AUTO 1 % (0-1); LYMPHOCYTES ABSOLUTE AUTO 0.39 K/mm3 (0.84-5.20); LYMPHOCYTES PERCENT AUTO 5 % (21-46); MONOCYTES ABSOLUTE AUTO 0.54 K/mm3 (0.16-1.47); MONOCYTES PERCENT AUTO 7 % (4-13); Mean Corpuscular HGB 26.8 pg (26.0-34.0); Mean Corpuscular Volume 84 fL (80-100); Mean Platelet Volume 10.9 fL (9.1-12.4); NEUTROPHILS ABSOLUTE AUTO 6.68 K/mm3 (1.96-9.15); NEUTROPHILS PERCENT AUTO 84 % (41-73); Platelet Count 73 K/mm3 (150-400); RDW Coefficient Variation 22.5 % (11.7-14.2); RDW Standard Deviation 67.1 fL (35.1-46.3); Red Blood Cell Count 2.87 M/mm3 (4.30-5.90); White Blood Cell Count 7.96 K/mm3 (4.00-11.30)
[2023-08-31 04:50] LABS: Alanine Aminotransfer (ALT/SGP 481 U/L (12-78); Albumin, Blood 2.3 g/dL (3.4-5.0); Albumin/Globulin Ratio 0.7 (0.8-1.8); Alk Phos 146 U/L (50-136); Anion Gap 6 mmol/L (6-16); Aspartate Aminotrans (AST/SGOT 248 U/L (12-37); Bilirubin, Total 0.6 mg/dL (0.1-1.0); Blood Urea Nitrogen 76 mg/dL (8-24); Bun/Creatinine Ratio 29.9 (12.0-20.0); CO2, Blood 25 mmol/L (21-32); Calcium, Blood 8.2 mg/dL (8.5-10.1); Chloride, Blood 107 mmol/L (98-108); Creatinine, Blood 2.54 mg/dL (0.60-1.20); Globulin, Blood 3.1 g/dL (2.2-4.0); Glomerular Filtration Rate 25 (60-); Glucose, Blood 252 mg/dL (70-99); Magnesium, Blood 2.6 mg/dL (1.6-2.4); Phosphorus, Blood 3.1 mg/dL (2.5-4.9); Potassium, Blood 3.7 mmol/L (3.5-5.5); Sodium, Blood 138 mmol/L (136-145); Total Protein, Blood 5.4 g/dL (6.4-8.2); Vancomycin, Random 20.1 ug/mL
[2023-08-31 05:07] LABS: International Normalized Ratio 1.22; Prothrombin Time Results 12.7 Sec (9.7-11.5)
[2023-08-31] MEDS ORDERED: Dose Adjust by Pharmacy XX STA ×3 (05:55→18:37)
--- NOTE | 2023-08-31 07:03 | NUR ---
SHIFT SUMMARY PT RESTING IN BED, CONTINUES TO BE INTUBATED BUT NOT SEDATED. PT OPENS EYES TO VERBAL STIMULI, WITHDRAWLS ALL EXTREMITIES FROM PAINFUL STIMULI. PT MOVES BLE AND LEFT ARM SPONTANEOUSLY. HR 90-100'S AFIB, MAP >65. 7.5 ETTTUBE, VENT SETTINGS 16/500/5/30%, OXYGEN SATURATION >95%. ABDOMEN SOFT AND ROUND, BOWEL TONES HYPOACTIVE BUT PRESENT IN ALL FOUR QUADRANTS. OG TUBE IN PLACE, TWOCAL TF INFUSING AT GOAL RATE OF 40MLS/HR WITH 30ML Q4H FLUSH, NO BM THIS SHIFT. TEMP XAVIER IN PLACE PATENT DRAINING TO GRAVITY, PT AFEBRILE THIS SHIFT. PICC LINE IN PLACE TO YUMIKO INFUSING NS TKO. PIV IN PLACE TO RIGHT HAND INFUSING HEPARIN AT 19UNITS/KG/HR. PIV TO LAC SL. BED IN LOWEST POSITION, CARE CONTINUES.
--- NOTE | 2023-08-31 07:45 | NUR ---
SHIFT ASSESSMENT ASSUMED CARE OF PT @ 0700, BEDSIDE REPORT RECEIVED FROM NOC NURSE. PT INTUBATED, NO SEDATION. OPENING EYES TO VERBAL STIMULI, NOT TRACKING NURSE NOR FOLLOWING COMMANDS. WITHDRAWS TO NOXIUS STIMULI TO LE'S, DOES NOT FOR UPPER. VOLUNTARILY MOVING BLE AND L ARM, NO MOVEMENT OF R ARM. VENT SETTINGS-AC:16/500/30/5 c SATS >95%. A-FIB ON THE JUNIOR PROJECT COORDINATOR. BP STABLE, NO PRESSORS INFUSING. TF @ GOAL VIA OGT. TEMP PROBE XAVIER DRAINING YELLOW URINE. NO BM TODAY.
[2023-08-31] MEDS ORDERED: Vancomycin HCL 1,000 MG in NS 100 ML IV ONE (12:00)
--- NOTE | 2023-08-31 15:10 | NUR ---
Requested by nursing to check in on family. CT head results from today remain about the same as the CT head on 08/29/23. Pt's , two sons and dtr-in-law are at the bedside. Pt remains on the ventilator without sedation. Nursing reports occasional eye opening wihtout following commands. Withdraws from painful stimuli below the waist. Randomly moves BLE. Pt's states that she believes John squeezed her hand today. She reports that she has tried to have him squeeze her hand on several occasions throughout the day however on all but one of the times she states she did not get any response. Family is waiting on results from a VANESSA which they hope will give them answers as to what has happened to John. They are holding out hope that he will just "wake up." Started gentle conversation about advanced care planning if he continues to be nonresponsive or shows no signs of improvement over the coming days. Family reports that John would not want to live out his life being kept alive by machines. Emotional support provided and questions answered. PC to remain available to assist family with advanced care planning in the coming days.
--- NOTE | 2023-08-31 18:28 | NUR ---
SHIFT SUMMARY PT REMAINS VENTILATED, GIVEN SBT THIS AFTERNOON FOR 20 MINS, DID FAIRLY WELL INITIALLY BUT RR INCREASED TO UPPER 30'S, BACK ON PRIOR SETTINGS. REMAINS OFF SEDATION. OCCASIONALLY OPENING EYES AND GRIMACING, NOT FOLLOWING COMMANDS. HEAD CT THIS AFTERNOON, NO ACUTE CHANGES. TF CONTINUES AT GOAL. TEMP PROBE XAVIER WITH YELLOW URINE, AFEBRILE. DISCUSSED CARE PLAN WITH SPOUSE AT BEDSIDE, ALSO CONTACTED PALLIATIVE CARE TO ASSIST WHICH WAS MUCH APPRECIATED, SEE THEIR NOTE.
--- NOTE | 2023-08-31 20:58 | NUR ---
ASSUMPTION OF CARE BEDSIDE SHIFT REPORT RECEIVED FROM NATHAN RN. PT CONTINUES TO BE INTUBATED BUT NOT SEDATED. PT WITHDRAWLS ALL EXTREMITIES FROM PAINFUL STIMULI. PT FAINTLY MOVES BLE AND LEFT ARM SPONTANEOUSLY. PT APPEARS TO FOLLOW SOME COMMANDS SUCH OPENING EYES AND WIGGLING TOES BUT DOES NOT REPLICATE. HR 90'S AFIB, MAP >65. ABDOMEN SOFT AND ROUND, BOWEL TONES HYPOACTIVE BUT PRESENT IN ALL FOUR QUADRANTS. OG TUBE IN PLACE, WITH TWOCAL TF INFUSING AT 40MLS/HR WITH 30ML Q4H FLUSH. TEMP XAVIER PATENT DRAINING TO GRAVITY. PICC LINE IN PLACE TO YUMIKO INFUSING NS TKO. PIV TO LEFT HAND INFUSING HEPARIN AT 19UNITS/KG/HR, PIV TO LAC SL. BED IN LOWEST POSITION, CARE CONTINUES.
[2023-09-01] VITALS (66 sets, daily range): BP systolic 101–126; BP diastolic 51–74
[2023-09-01] MEDS ORDERED: Dose Adjust by Pharmacy XX STA ×4 (02:44→23:10)
[2023-09-01 05:13] LABS: BASOPHILS ABSOLUTE AUTO 0.04 K/mm3 (0.00-0.23); BASOPHILS PERCENT AUTO 0 % (0-2); EOSINOPHILS ABSOLUTE AUTO 0.19 K/mm3 (0.00-0.68); EOSINOPHILS PERCENT AUTO 2 % (0-6); Hemoglobin 7.6 g/dL (13.5-17.5); IMMATURE GRAN ABSOLUTE AUTO 0.06 K/mm3 (0.00-0.10); IMMATURE GRAN PERCENT AUTO 1 % (0-1); LYMPHOCYTES ABSOLUTE AUTO 0.42 K/mm3 (0.84-5.20); LYMPHOCYTES PERCENT AUTO 5 % (21-46); MONOCYTES ABSOLUTE AUTO 0.74 K/mm3 (0.16-1.47); MONOCYTES PERCENT AUTO 8 % (4-13); Mean Corpuscular HGB 25.9 pg (26.0-34.0); Mean Corpuscular HGB Conc 30.4 g/dL (31.5-36.5); Mean Corpuscular Volume 85 fL (80-100); Mean Platelet Volume 9.7 fL (9.1-12.4); NEUTROPHILS PERCENT AUTO 84 % (41-73); Platelet Count 70 K/mm3 (150-400); RDW Coefficient Variation 22.6 % (11.7-14.2); RDW Standard Deviation 69.3 fL (35.1-46.3); Red Blood Cell Count 2.94 M/mm3 (4.30-5.90); White Blood Cell Count 9.05 K/mm3 (4.00-11.30)
[2023-09-01 05:22] LABS: International Normalized Ratio 1.2; Prothrombin Time Results 12.5 Sec (9.7-11.5)
[2023-09-01 06:06] LABS: Magnesium, Blood 2.6 mg/dL (1.6-2.4)
--- NOTE | 2023-09-01 06:07 | NUR ---
SHIFT SUMMARY PT CONTINUES TO BE INTUBATED BUT NOT SEDATED. OPENS EYES TO VERBAL STIMULI, WITHDRAWLS ALL EXTREMITIES FROM PAINFUL STIMULI. PT WEAKLY MOVES BLE AND LEFT ARM SPONTANEOUSLY. PT ALSO APPEARS TO FOLLOW SOME COMMANDS SUCH GRIPPING WITH RIGHT HAND, OPENING EYES, AND WIGGLING TOES. HR 80'S AFIB, MAP >65. 7.5 ETT TUBE, VENT SETTINGS 16/500/5/30%, OXYGEN SATURATION >95%. PT HAS INCREASED ORAL SECRETIONS. OG TUBE IN PLACE, TWOCAL TF ON HOLD AT THIS TIME DUE TO NOT HAVING ACCESS TO MORE. BOWEL TONES HYPOACTIVE BUT PRESENT IN ALL FOUR QUADRANTS. TEMP XAVIER IN PLACE PATENT DRAINING TO GRAVITY, PT AFEBRILE THIS SHIFT. PICC LINE IN PLACE TO YUMIKO INFUSING NS TKO. PIV TO RIGHT HAND INFUSING HEPARIN AT 20UNITS/KG/HR. BED IN LOWEST POSITION, CARE CONTINUES.
[2023-09-01 06:09] LABS: Albumin, Blood 2.4 g/dL (3.4-5.0); Albumin/Globulin Ratio 0.8 (0.8-1.8); Bilirubin, Total 0.6 mg/dL (0.1-1.0); Bun/Creatinine Ratio 33.3 (12.0-20.0); Calcium, Blood 8.5 mg/dL (8.5-10.1); Creatinine, Blood 2.13 mg/dL (0.60-1.20); Globulin, Blood 3.2 g/dL (2.2-4.0); Phosphorus, Blood 2.6 mg/dL (2.5-4.9); Potassium, Blood 3.7 mmol/L (3.5-5.5); Total Protein, Blood 5.6 g/dL (6.4-8.2)
--- NOTE | 2023-09-01 09:27 | NUR ---
SHIFT ASSESSMENT ASSUMED CARE OF PT @ 0700, BEDSIDE REPORT RECEIVED FROM NOC NURSE. PT VENTILATED, OFF SEDATION. OPENS EYES SPONTANEOUSLY AND TO VERBAL STIMULI, NOT TRACKING NURSE. WEAKLY SQUEEZING R HAND AND WIGGLING TOES TO COMMAND. RT NOTIFIED FOR SBT THIS AM, SPON-12/5 30%, PT TOLERATING WELL AT THIS TIME, RR IN HIGH TEENS, ADEQUEATE TV'S. TF OFF FOR A FEW HOURS LAST NIGHT DUE TO NO TF IN UNIT, STARTED BACK THIS AM AROUND 0730. TEMP PROBE XAVIER DRAINING YELLOW URINE, AFEBRILE. [facility] NOTIFIED OF VANESSA THIS AM, CONFIRMED PHYSICIAN ON TODAY DOES VANESSA'S.
[2023-09-01] MEDS ORDERED: PROCRIT40000 UNIT INJ (10:31)
[2023-09-01] MEDS ORDERED: HYDR10 PO (10:33)
[2023-09-01 12:07] LABS: Vancomycin, Random 20.5 ug/mL
[2023-09-01] MEDS ORDERED: Vancomycin HCL 750 MG in NS 100 ML IV ONE (12:30)
--- NOTE | 2023-09-01 13:32 | NUR ---
"Spiritual Care | Family support Pt. is mostly non responsive. Pts. daughter and STAR are at bedside and welcome my visit. Facilitate a life review with the family. Daughter verbalizes that the pt. and spouse are people of los, and verbalizied gratitude for the spiritual care visit."
[2023-09-01] MEDS ORDERED: VITAMIN D31000 UNI1 PO (17:13)
[2023-09-01] MEDS ORDERED: B-12500 MC2 PO (17:14)
[2023-09-01] MEDS ORDERED: FISH OIL 1,0001 EA10 PO (17:15)
[2023-09-01] MEDS ORDERED: METO2.5 PO (17:21)
[2023-09-01] MEDS ORDERED: SULF500 PO (17:25)
--- NOTE | 2023-09-01 17:59 | NUR ---
SHIFT SUMMARY PT REMAINS INTUBATED, OFF SEDATION, VENT ON SPONTANEOUS T/O THE DAY & PT TOLERATING WELL. O2 SATS >95%. PT OPENING EYES SPONTANEOUSLY AND TO VERBAL STIMULI, SQUEEZING R HAND AND WIGGLING TOES TO COMMAND, FAINTLY TURNING HEAD TO FACE NURSE. TF OFF FOR MOST OF THE DAY AWAITING VANESSA BUT VANESSA TO BE PERFORMED 09/02/23 PER [facility]. TF NOW INFUSING @ 20/HR WITH GOAL OF 40/HR. HEPARIN CONTINUES @ PRESCRIBED RATE. XAVIER CATH DRAINING LISETH URINE. PTS SPOUSE UPDATED OF PLANS FOR VANESSA TOMORROW.
--- NOTE | 2023-09-01 21:05 | NUR ---
ASSUMPTION OF CARE BEDSIDE SHIFT REPORT RECEIVED FROM NATHAN RN. PT CONTINUES TO BE INTUBATED BUT NOT SEDATED. PT OPENS EYES TO VERBAL STIMULI, TURNS HEAD IN THE DIRECTION OF SOUND BUT DOES NOT TRACK OR MAKE EYE CONTACT. PT WEAKLY SQUEEZES RIGHT HAND AND FAINTLY WIGGLES TOES ON COMMAND, OPENS MOUTH WHEN ASKED DURING ORAL CARE. HR 100-130'S AFIB, MAP >65. VENT SETTINGS SPONTANEOUS 10/5 30% INITIALLY, PT HAD INCREASED RESPIRATORY RATE WITH TITAL VOLUMES IN THE 300-400'S. RT CALLED AND PT SWITCHED TO AC/VC 16/500/5/30%, OXYGEN SATURATION >95%. OG TUBE IN APCE WITH TWOCAL TF INFUSING AT GOAL RATE OF 40MLS/HR WITH 30ML Q4H FLUSH. ABDOMEN SOFT AND ROUND, BOWEL TONES ACTIVE IN ALL FOUR QUADRANTS. TEMP XAVIER IN PLACE PATENT DRAINING TO GRAVITY. PICC LINE IN PLACE TO YUMIKO INFUSING NS TKO. PIV TO RIGHT HAND INFUSING HEPARIN AT 21 UNITS/KG/HR. BED IN LOWEST POSITION, CARE CONTINUES.
[2023-09-02] VITALS (58 sets, daily range): BP systolic 110–145; BP diastolic 49–89
--- NOTE | 2023-09-02 03:02 | NUR ---
PT UPDATE PT MADE NPO, TF ON HOLD FOR VANESSA IN THE AM.
[2023-09-02 04:00] LABS: BASOPHILS ABSOLUTE AUTO 0.05 K/mm3 (0.00-0.23); BASOPHILS PERCENT AUTO 1 % (0-2); EOSINOPHILS ABSOLUTE AUTO 0.11 K/mm3 (0.00-0.68); EOSINOPHILS PERCENT AUTO 1 % (0-6); Hematocrit 24.4 % (37.0-53.0); Hemoglobin 7.4 g/dL (13.5-17.5); IMMATURE GRAN ABSOLUTE AUTO 0.09 K/mm3 (0.00-0.10); IMMATURE GRAN PERCENT AUTO 1 % (0-1); LYMPHOCYTES ABSOLUTE AUTO 0.54 K/mm3 (0.84-5.20); LYMPHOCYTES PERCENT AUTO 5 % (21-46); MONOCYTES ABSOLUTE AUTO 0.86 K/mm3 (0.16-1.47); MONOCYTES PERCENT AUTO 9 % (4-13); Mean Corpuscular HGB 26.2 pg (26.0-34.0); Mean Corpuscular HGB Conc 30.3 g/dL (31.5-36.5); Mean Corpuscular Volume 87 fL (80-100); Mean Platelet Volume 11.1 fL (9.1-12.4); NEUTROPHILS PERCENT AUTO 84 % (41-73); Platelet Count 66 K/mm3 (150-400); RDW Coefficient Variation 22.8 % (11.7-14.2); RDW Standard Deviation 71.1 fL (35.1-46.3); Red Blood Cell Count 2.82 M/mm3 (4.30-5.90); White Blood Cell Count 10.15 K/mm3 (4.00-11.30)
[2023-09-02 04:31] LABS: International Normalized Ratio 1.26; Prothrombin Time Results 13.1 Sec (9.7-11.5)
[2023-09-02] MEDS ORDERED: Dose Adjust by Pharmacy XX STA (05:14)
--- NOTE | 2023-09-02 06:07 | NUR ---
SHIFT SUMMARY PT RESTING IN BED, CONTINUES TO BE INTUBATED BUT NOT SEDATED. PT OPENS EYES TO VERBAL STIMULI, FOLLOWS SOME COMMANDS SUCH OPENING EYES, GRIPPING HAND ON THE RIGHT, WIGGLING TOES AND OPENING MOUTH DURING ORAL CARE. PT HAD TMAX OF 100.7 THIS SHIFT, BLANKETS REMOVED AND FAN IN PLACE WITH GOOD RESULT. HR 80-130'S AFIB, MAP >65. VENT SETTINGS REMAIN THE SAME, AC/VC 16/500/530%, OXYGEN SATURATION >95%. PT HAS MODERATE AMOUNT OF ORAL SECTRETIONS NOTED. ABDOMEN SOFT AND ROUND, BOWEL TONES ACTIVE IN ALL FOUR QUDRANTS. TWOCAL TF PUT ON HOLD AT AROUND 0300, PT MADE NPO FOR VANESSA PROCEDURE IN THE AM. TEMP XAVIER PATENT DRAINING TO GRAVITY. PICC LINE IN PLACE TO YUMIKO INFUISNG. PIV TO RIGHT HAND. HEPARIN INFUSING THIS SHIFT CURRENTLY OFF. PER PHARMACY ORDERS HEPARIN TO BE OFF FROM [id number], PLAN TO RESTART PER ORDER. NS INFUSING TKO. BED IN LOWEST POSITION, CARE CONTINUES.
[2023-09-02 06:13] LABS: Albumin, Blood 2.2 g/dL (3.4-5.0); Albumin/Globulin Ratio 0.6 (0.8-1.8); Bilirubin, Total 0.9 mg/dL (0.1-1.0); Bun/Creatinine Ratio 37.4 (12.0-20.0); Calcium, Blood 8.2 mg/dL (8.5-10.1); Creatinine, Blood 1.98 mg/dL (0.60-1.20); Globulin, Blood 3.4 g/dL (2.2-4.0); Potassium, Blood 4.2 mmol/L (3.5-5.5); Total Protein, Blood 5.6 g/dL (6.4-8.2)
--- NOTE | 2023-09-02 07:30 | NUR ---
ASSUMED CARE: PT RESTING IN BED. INTUBATED WITH SETTINGS AC 16/500/5/30%. NO SEDATION. SOME NEURO ACTIVITY BUT NOT ALL PURPOSEFUL. NSR ON TELE IN 80S. HEPARIN GTT RUNNING AND DOSE VERIFIED WITH NIGHT RN.
[2023-09-02] MEDS ORDERED: Benzocaine Oral Spray 0.5ML UD ONE (07:33)
--- NOTE | 2023-09-02 07:45 | NUR ---
DR GLEASON CALLED TO CONFIRM VANESSA TODAY AT 0800. PROVIDED PT'S 'S NUMBER TO GET CONSENT. DR GLEASON CALLED BACK AND REQUESTED THAT THIS RN CALL AND VERIFY THAT CONSENT WAS RECIEVED WITH PT'S . PT'S CONFIRMED AND DENIED QUESTIONS.
--- NOTE | 2023-09-02 08:13 | NUR ---
DR GLEASON AT BEDSIDE WITH PERSONNEL REPRESENTATIVE TO PERFORM VANESSA. ASKED NURSING STAFF TO REMOVE OG FOR BETTER ACCESS. PT WAS RESTLESS AND SLIGHTLY AGITATED WHEN PROBE WAS INSERTED INTO MOUTH. 2MG IV VERSED AND 40MG IV PROPOFOL GIVEN FOR PROCEDURE. DR GLEASON COMPLETED EXAM AND STATED HE WOULD CONTACT DR TEE WITH RESULTS.
--- NOTE | 2023-09-02 09:35 | NUR ---
CONFIRMED WITH DR TEE THAT HEPARIN IS DC'D AND NO ORAL ANTICOAGULATION RESUMED AT THIS TIME.
[2023-09-02] MEDS ORDERED: Midazolam HCl 1MG / ML 2ML Vial IV ONE (10:11)
[2023-09-02] MEDS ORDERED: Vancomycin HCL 750 MG in NS 100 ML IV SCH (12:00)
[2023-09-02] MEDS ORDERED: Protein Supplement 30 ML UD PT SCH (12:45)
--- NOTE | 2023-09-02 18:14 | NUR ---
SHIFT SUMMARY: PT CURRENTLY ON PS 12/5 WITH 30% FIO2. NEURO STATUS REMAINS UNCHANGED THIS SHIFT WITH MOVEMENT OF ALL EXTREMITIES AND SOME FOLLOWING COMMANDS BUT NOT CONSISTENTLY. VANESSA COMPLETED WITH CARDIOLOGY AND VEGETATIONS FOUND. HEPARING GTT DC'D BECAUSE OF THIS PER DR TEE. FAMILY UPDATED OF STATUS THIS SHIFT. NO FURTHER NEEDS OR CONCERNS AT THIS TIME.
--- NOTE | 2023-09-02 20:32 | NUR ---
ASSUMPTION OF CARE: RECEIVED REPORT FROM CARMELO CROWE. PT INTUBATED WITH SETTINGS PC 12/5/30%. SPO2 >95%. LUNGS COARSE AND DIM T/O . PT OPENS EYES TO VERBAL STIMULI, FOLLOWS SOME COMMANDS BUT NOT ALL THE TIME. ABLE TO SQUEEZE HANDS ON THE RIGHT SIDE, VERY MINIMAL ON THE LEFT. WIGGLES TOES BILATERALLY. SHAKES HEAD YES AND NO TO SOME QUESTIONS. SHAKES HEAD NO WHEN ASKED ABOUT PAIN. LARGE AMOUNT OF ORAL SECRETIONS NOTED. SMALL AMOUNT OF THICK, WHITE SECRETIONS FROM ET TUBE. TUBE FEED AT GOAL THROUGH OGT. 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 PICC TO YUMIKO, INFUSING TKO. PIV SALINE LOCKED. XAVIER IN PLACE, DRAINING YELLOW URINE TO GRAVITY. NO BM YET. BED LOW AND LOCKED.
[2023-09-03] VITALS (50 sets, daily range): BP systolic 74–147; BP diastolic 36–97
--- NOTE | 2023-09-03 02:43 | NUR ---
UPDATE: PT SWITCHED BACK TO AC/VC PLUS SETTINGS 16/500/5/30% AT 0240 FOR INCREASING RESPIRATORY RATE 30'S-40'S. PT APPEARED VERY UNCOMFORTABLE AND RESTLESS. MEDICATED PER MAR FOR PAIN WITH MINIMAL RELIEF. PT BITING DOWN ON ET TUBE AND FIGHTING THE VENT.
[2023-09-03 04:33] LABS: BASOPHILS ABSOLUTE AUTO 0.04 K/mm3 (0.00-0.23); BASOPHILS PERCENT AUTO 0 % (0-2); EOSINOPHILS ABSOLUTE AUTO 0.18 K/mm3 (0.00-0.68); EOSINOPHILS PERCENT AUTO 2 % (0-6); Hematocrit 25.2 % (37.0-53.0); Hemoglobin 7.6 g/dL (13.5-17.5); IMMATURE GRAN ABSOLUTE AUTO 0.16 K/mm3 (0.00-0.10); IMMATURE GRAN PERCENT AUTO 1 % (0-1); LYMPHOCYTES ABSOLUTE AUTO 0.42 K/mm3 (0.84-5.20); LYMPHOCYTES PERCENT AUTO 4 % (21-46); MONOCYTES ABSOLUTE AUTO 0.84 K/mm3 (0.16-1.47); MONOCYTES PERCENT AUTO 7 % (4-13); Mean Corpuscular HGB 25.9 pg (26.0-34.0); Mean Corpuscular HGB Conc 30.2 g/dL (31.5-36.5); Mean Corpuscular Volume 86 fL (80-100); NEUTROPHILS ABSOLUTE AUTO 9.89 K/mm3 (1.96-9.15); NEUTROPHILS PERCENT AUTO 86 % (41-73); NRBC ABSOLUTE 0.03 K/mm3 (0.00-0.02); NRBC Auto 0.3 /100 WBC (0.0-0.2); Platelet Count 83 K/mm3 (150-400); RDW Coefficient Variation 22.8 % (11.7-14.2); RDW Standard Deviation 70.7 fL (35.1-46.3); Red Blood Cell Count 2.93 M/mm3 (4.30-5.90); White Blood Cell Count 11.53 K/mm3 (4.00-11.30)
[2023-09-03 05:04] LABS: Albumin, Blood 2.5 g/dL (3.4-5.0); Albumin/Globulin Ratio 0.7 (0.8-1.8); Bilirubin, Total 0.8 mg/dL (0.1-1.0); Bun/Creatinine Ratio 42.7 (12.0-20.0); Calcium, Blood 8.5 mg/dL (8.5-10.1); Creatinine, Blood 1.99 mg/dL (0.60-1.20); Globulin, Blood 3.4 g/dL (2.2-4.0); Potassium, Blood 4.4 mmol/L (3.5-5.5); Total Protein, Blood 5.9 g/dL (6.4-8.2)
--- NOTE | 2023-09-03 06:20 | NUR ---
SHIFT SUMMARY: PT CONTINUES TO REMAIN INTUBATED, NO SEDATION. AC/VC+ 16/500/5/30%. COPIOUS AMOUNTS OF ORAL SECRETIONS, THICK, WHITE SECRETIONS FROM ET TUBE. SPO2 >95%. PT OPENING EYES TO VERBAL STIMULI. FOLLOWS SOME SIMPLE COMMANDS, SQUEEZES RIGHT HAND, WIGGLES TOES. NODS HEAD YES AND NO TO SIMPLE QUESTIONS. PT NODS HEAD NO WHEN ASKED ABOUT PAIN, ALTHOUGH PT APPEARS UNCOMFORTABLE. HEAD OF SCIENCE IN PLACE, AFIB WITH HR 90'S-100'S. SBP 130'S. TUBE FEED AT GOAL THROUGH OGT. PICC LINE TO YUMIKO, PATENT AND INFUSING TKO. PIV INTACT AND SALINE LOCKED. XAVIER PATENT AND DRAINING TO GRAVITY. TMAX 100.0, FAN PLACED ON PT AND TEMP DECREASED TO 99.5. LOOSE BM X2 THIS SHIFT. BED LOW AND LOCKED.
--- NOTE | 2023-09-03 08:22 | NUR ---
ASSUMED CARE BEDSIDE REPORT FROM SERGE CROWE AT 0700. PT INTUBATED, CHANGED TO SPONT SHORTLY AFTER SHIFT CHANGE, SPONT 12/5/30%, TV 350-400 ML, RR MID 20'S. LUNGS COARSE, DIM IN BASES. MODERATE AMOUNT OF THICK ORAL AND ETT SECRETIONS. +COUGH/GAG/SWALLOW. FOLLOWS SIMPLE COMMMANDS, SQUEEZES ON RIGHT AND WIGGLES RIGHT TOES, NO MOVEMENT TO LEFT EXT NOTED. OPENS EYES SPONT, MAKES EYE CONTACT. AFIB, RATE 90'S. BP STABLE. TUBE FEEDS AT GOAL VIA OGT. ABD ROUND, SOFT, NON TENDER, BT X 4. XAVIER PATENT, DRAINING CLEAR YELLOW URINE TO GRAVITY. PICC TO RUE, PIV TO RUE REMOVED. WILL CONTINUE PLAN OF CARE.
[2023-09-03] MEDS ORDERED: Furosemide 10 MG/ML 4ML Vial IV ONE (10:00)
[2023-09-03] MEDS ORDERED: propofoL 100 ML IV SCH (11:05)
[2023-09-03 12:54] LABS: Vancomycin, Trough 20.3 ug/mL (5.0-10.0)
--- NOTE | 2023-09-03 14:36 | NUR ---
UPDATE PT UP IN CHAIR SINCE 1029, HAD BEEN TOLERATING WELL. BEGAN TREMOROUS MOVEMENT TO LOWER JAW, TACHYPENIA, AND TACHYCARDIA. NO LONGER FOLLOWING COMMANDS, GRIMACING. VENT ALARMS FOR HIGH EXPIRATORY PRESSURES. MEDICATED c FENT FOR PAIN AND VENT COMPLIANCE, NO CHANGE. RT AT BEDSIDE. O2 SATS DECREASED TO 70'S. RT ATTEMPTED SUCTIONING AND BAGGING. BACK TO BED. DR TEE CALLED. PROPOFOL STARTED. HR DECREASED TO 110-120'S. BP STABLE. BEDSIDE CARDIAC U/S. FAMILY NOTIFIED.
--- NOTE | 2023-09-03 15:56 | NUR ---
"Spiritual Care Visit | Nurse request Pt. is intubated and resting. Spouse and Pts son are present. Spouse displayed evidence of having spiritual questions about the nature of God, life and . Conveyed a calming presence while facilitating a life review and exploring los, values and the nature of God. Spouse displayed evidence of being comforted. Prayed with Spouse and son. Both verbalized gratitude for the spiritual care visit."
--- NOTE | 2023-09-03 17:45 | NUR ---
SHIFT SUMMARY CHANGE IN PT CONDITION, SEE PREVIOUS NOTE. PT INTUBATED AND SEDATED. VENT SETTINGS AC/VC 16/500/5/30%. LUNGS COARSE THROUGHOUT. OCCASIONAL COUGH. SMALL AMOUNT OF THICK YELLOW SECRETIONS FROM ETT, CONTINUES TO HAVE MODERATE AMOUNT OF ORAL SECRETIONS. PROPOFOL INFUSING FOR VENT COMPLIANCE, RASS -4. +COUGH/GAG/SWALLOW. DOES NOT FOLLOW COMMANDS. GRIMACES c CARE. AFIB ON MONITOR, RATE 100-110'S. BP STABLE. INCREASED EDEMA TO BUE, 2+. DIURESED THIS SHIFT, 850 ML CLEAR YELLOW URINE OUT. XAVIER PATENT. TUBE FEEDS CONTINUE AT GOAL. ABD ROUND, SOFT, NON TENDER, BT X 4. TWO BMS THIS SHIFT. PICC TO RUE, DRESSING CHANGED. SO AND SON UPDATED ON CHANGE IN PT CONDITION THIS SHIFT. WILL CONTINUE PLAN OF CARE UNTIL REPORT TO ONCOMING NURSE.
[2023-09-03 19:15] LABS: Anti-Xa UFH, PHA Monitoring <0.10 IU/mL
--- NOTE | 2023-09-03 19:15 | NUR ---
UPDATE: CALL PLACED TO DR. TEE REGARDING PT LOW BLOOD PRESSURE. DR. TEE SPOKE WITH THE OF THE PT AND SHE DECIDED NOT TO MOVE FORWARD WITH LEVOPHED SUPPORT AT THIS TIME. MAP <[address] TEE, CONTINUE TO MONITOR PT AT THIS POINT. IF MAP CONTINUES TO DECLINE T/O THE NIGHT FAMILY WILL BE NOTIFIED.
[2023-09-03] MEDS ORDERED: Dose Adjust by Pharmacy XX STA (19:20)
[2023-09-03] MEDS ORDERED: Heparin Sodium,Porcine/0.5 NS 500 ML IV SCH (19:20)
[2023-09-03] MEDS ORDERED: Heparin Sodium,Porcine 5,000 UNIT/0.5 ML SDV SC SCH (21:00)
[2023-09-03] MEDS ORDERED: Vancomycin HCL 1,250 MG in NS 250 ML IV SCH (21:00)
--- NOTE | 2023-09-03 21:55 | NUR ---
ASSUMPTION OF CARE: RECEIVED REPORT FROM YVONNE CROWE. PT INTUBATED AND SEDATED. PROPOFOL AT 20 MCG/KG/MIN FOR VENTILATOR COMPLIANCE. PT NOT OPENING EYES TO VERBAL STIMULI. HAS A VERY MINIMAL RESPONSE TO PAINFUL STIMULI. DOES NOT FOLLOW COMMANDS OR MAKE ANY PURPOSEFUL MOVEMENTS. VENT SETTINGS AC/VC+ 16/500/5/30%. SPO2 >95%. LUNGS SOUNDS CLEAR. COPIOUS ORAL SECRETIONS NOTED, NO GAG WITH ORAL SUCTION. THICK, WHITE SECRETIONS FROM ET TUBE WITH MINIMAL GAG RESPONSE NOTED. TRANSPORT OPERATIONS INSPECTOR IN PLACE, AFIB WITH HR 90'S-100'S. MAP 50'S-60'S. XAVIER DRAINING TO GRAVITY. PICC TO YUMIKO, PATENT AND INFUSING TKO. TUBE FEED AT GOAL THROUGH OGT. UPDATED TO PT CONDITION. BED LOW AND LOCKED.
[2023-09-04] VITALS (20 sets, daily range): BP systolic 80–106; BP diastolic 31–68
[2023-09-04 04:01] LABS: BASOPHILS ABSOLUTE AUTO 0.04 K/mm3 (0.00-0.23); BASOPHILS PERCENT AUTO 0 % (0-2); EOSINOPHILS ABSOLUTE AUTO 0.15 K/mm3 (0.00-0.68); EOSINOPHILS PERCENT AUTO 1 % (0-6); Hematocrit 23.6 % (37.0-53.0); IMMATURE GRAN ABSOLUTE AUTO 0.08 K/mm3 (0.00-0.10); IMMATURE GRAN PERCENT AUTO 1 % (0-1); LYMPHOCYTES ABSOLUTE AUTO 0.49 K/mm3 (0.84-5.20); LYMPHOCYTES PERCENT AUTO 4 % (21-46); MONOCYTES ABSOLUTE AUTO 0.61 K/mm3 (0.16-1.47); MONOCYTES PERCENT AUTO 5 % (4-13); Mean Corpuscular HGB 25.9 pg (26.0-34.0); Mean Corpuscular HGB Conc 29.7 g/dL (31.5-36.5); Mean Corpuscular Volume 87 fL (80-100); Mean Platelet Volume 10.9 fL (9.1-12.4); NEUTROPHILS PERCENT AUTO 88 % (41-73); NRBC ABSOLUTE 0.03 K/mm3 (0.00-0.02); NRBC Auto 0.3 /100 WBC (0.0-0.2); Platelet Count 73 K/mm3 (150-400); RDW Coefficient Variation 22.6 % (11.7-14.2); RDW Standard Deviation 71.3 fL (35.1-46.3); White Blood Cell Count 11.47 K/mm3 (4.00-11.30)
[2023-09-04 04:22] LABS: Albumin, Blood 2.2 g/dL (3.4-5.0); Albumin/Globulin Ratio 0.7 (0.8-1.8); Bilirubin, Total 0.8 mg/dL (0.1-1.0); Bun/Creatinine Ratio 45.3 (12.0-20.0); Calcium, Blood 8.2 mg/dL (8.5-10.1); Creatinine, Blood 2.23 mg/dL (0.60-1.20); Globulin, Blood 3.2 g/dL (2.2-4.0); Potassium, Blood 4.6 mmol/L (3.5-5.5); Total Protein, Blood 5.4 g/dL (6.4-8.2)
--- NOTE | 2023-09-04 06:02 | NUR ---
SHIFT SUMMARY: PT REMAINS INTUBATED AND SEDATED T/O THE SHIFT. PT STILL NOT OPENING EYES TO VERBAL STIMULI OR FOLLOWING COMMANDS. HAS MINIMAL RESPONSE TO PAINFUL STIMULI. NO GAG NOTED WITH ORAL SUCTION, MINIMAL GAG WITH DEEP SUCTION THROUGH ET TUBE. PROPOFOL REMAINS AT 20 MCG/KG/MIN FOR VENT COMPLIANCE. TKO INFUSING THROUGH PICC TO YUMIKO. XAVIER PATENT AND DRAINING TO GRAVITY. TUBE FEED REMAINS AT GOAL THROUGH OGT. OCCUPATIONAL HEALTH RN IN PLACE, AFIB HR 70'S-80'S. MAP 50'S-60'S T/O THE NIGHT. VENT SETTINGS UNCHANGED T/O THE SHIFT. SPO2 >95%. BED LOW AND LOCKED.
--- NOTE | 2023-09-04 08:58 | NUR ---
ASSUMED CARE REPORT FROM SERGE CROWE AT 0700. PT INTUBATED AND SEDATED. VENT SETTINGS AC/VC+ 16/500/0.7/5/30%. LUNGS COARSE THROUGHOUT. SMALL AMOUNT OF THICK SECRETIONS FROM ETT AND ORAL. PROPOFOL GTT FOR VENT COMPLIANCE, OCCASIONAL COUGH AND PEAK PRESSURES. RASS -4. PT DOES NOT FOLLOW COMMANDS. GRIMACES c TRAPEZUS PINCH. DOES NOT WITHDRAW EXT TO PAIN. NO CORNEAL REFLEX TO LEFT EYE. AFIB, RATE 80-90'S. MAP 55-65, NO PRESSORS PER DR TEE DICTATION. 2+ EDEMA TO BUE. ABD ROUND, SOFT, NON TENDER, BT X 4. BM THIS AM. TUBE FEEDS AT GOAL. XAVIER PATENT, DRAINING CLEAR YELLOW URINE TO GRAVITY. PICC TO JOSE LUIS, DRESSING C/D/I. FAMILY AT BEDSIDE. UPDATED ON OVERNIGHT EVENTS AND CARE PLAN. QUESTIONS ANSWERED. WILL CONTINUE PLAN OF CARE.
--- NOTE | 2023-09-04 10:38 | NUR ---
Spiritual Care Family Support - [facility] Pt. will be havving a planned extubation sometime this morning. Spouse had questions about EOL decisions and after some EOL education has chosed [facility] in [place] for their home. Spouse verbalized gratitude for the assistance.
[2023-09-04] MEDS ORDERED: Atropine Sulfate 1% Opth Soln 2ML BTL SL PRN (10:50)
[2023-09-04] MEDS ORDERED: Morphine Sulfate 20 MG/1ML 1 ML Oral Syringe SL PRN (10:50)
[2023-09-04] MEDS ORDERED: Morphine Sulfate 10 MG/ML 1MLSYR IV PRN (10:50)
[2023-09-04] MEDS ORDERED: Scopolamine Hydrobromide Patch TOP PRN (10:50)
[2023-09-04] MEDS ORDERED: LORazepam 2 MG/ML 1ML Injection IV PRN (10:50)
--- NOTE | 2023-09-04 12:00 | NUR ---
COMFORT CARE DR TEE TO BEDSIDE c SO AND SON. DISCUSSIONS REGARDING GOALS OF CARE AND COMFORT CARE. FAMILY DECIDES TO PROCEED c COMFORT CARE. EXTUBATED AT 1140. FAMILY AT BEDSIDE. WILL MONITOR FOR PAIN, ANXIETY, AND AIR HUNGER.
--- NOTE | 2023-09-04 12:13 | NUR ---
"Spiritual Care | Extubation Pt. is extubated. Sat with family in ICU waiting room. When family was ready, and Pt. had been extubated, brought family into room. Scripture is read, and prayers are given. Family verbalized gratitude for the spiritual care support. 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 Spouse verbalized gratitude for the person care she has recieved."
--- NOTE | 2023-09-04 17:00 | NUR ---
Pt extubated today at approximately 11:30am in a de-escalation of care. He is now on comfort care. Family at bedside. No questions or concerns. Pt is not waking, but appears comfortable at this time. Palliative Care will remain available.
--- NOTE | 2023-09-04 17:21 | NUR ---
SHIFT SUMMARY PT ON COMFORT CARE. MEDICATED FOR PAIN AND AIR HUNGER. RESTING COMFORTABLY AT THIS TIME. CPOT. RR MID 20'S. NO DISTRESS NOTED. SECRETIONS IMPROVED. AT BEDSIDE MOST OF SHIFT. HOME FOR EVENING. REPORT TO [facility] TO ASSUME CARE UNTIL NOC SHIFT.
--- NOTE | 2023-09-04 17:25 | NUR ---
ASSUMED CARE OF . HE IS RESTING QUIETLY, EVEN RESPIRATIONS. ON THE LOOM CLEANER. RECENTLY REPOSITIONED AND MEDICATED. WILL CONTINUE COMFORT CARE.
--- NOTE | 2023-09-04 18:00 | NUR ---
FAMILY RETURNED FOR A BRIEF VISIT. SAID THEY WOULD RETURN IN THE AM UNLESS SOMETHING CHANGES AND THEY ARE NOTIFIED TO RETURN. PT REMAINS LOOKING VERY RESTFUL. NO CHANGES.
--- NOTE | 2023-09-04 18:54 | NUR ---
PT'S HEART RATE HAS INCREASED, RESP RATE INCREASED AND PT MOANING SOME. MEDICATED PER MAR FOR DISCOMFORT.
--- NOTE | 2023-09-05 00:20 | NUR ---
ARRIVAL PT ARRIVED FROM ICU, UNRESPONSIVE BUT INTERMITTENTLY MOANING. ICU CHARGE LINDA CALLED PTS TO LET HER KNOW HE TRANSFERRED TO OUR UNIT. PT RESTING COMFORTABLY. MUSIC PLAYING QUIETLY, LIGHTS LOW.
--- NOTE | 2023-09-05 03:40 | NUR ---
CONFIRMATION PATIENT CONFIRMED NO RESPIRATIONS OR HEART BEAT @0320. CONFIRMED WITH LINING CEMENTER, NOTIFIED DONOR LINE, SPOUCE, AND NURSING AGRICULTURAL ENGINEERING TECHNICIAN. , VIVIANA, ASKED TO ALLOW TIME FOR FAMILY TO COME IN TO SEE THE PATIENT.
--- NOTE | 2023-09-05 06:02 | NUR ---
FAMILY UPDATE SPOKE TO ABOUT WHEN FAMILY WILL BE ARRIVING TO VISIT THE PATIENT BEFORE [facility] COME TO COLLECT THE PATIENT. SPOUCE STATES FAMILY WILL BE HERE AROUND 0830.
--- NOTE | 2023-09-05 11:10 | NUR ---
[facility]ENTER NOTIFIED [facility] THAT PT CAN BE PICKED UP. CLARIFIED WITH FAMILY THAT ALL FAMILY MEMBERS WHO WANTED TO WERE ABLE SEE PT. MEGAN GOMEZ FROM [facility] ARRIVED TO TAKE PATIENT. FACE SHEET PROVIDED.
--- NOTE | 2023-09-05 12:55 | NUR ---
Supportive Visit Attempted to provide family support with EOL process. Mr. Rosado passed this morning 09/05/23 @ 0320 per flagger, Kim. Family had left the hospital.
== END 2023-09-05 11:15 ==
LOC: ER 11:50 → ICUE 14:39 → SURS 14:39 → ICUE 15:37 → SURS 09-05 00:20
PROVIDERS: Emergency Medicine; Internal Medicine Critical Care Medicine; Student in an Organized Health Care Education/Training Program; ADMIT Family Medicine
PROC: 5A12012 Performance of Cardiac Output, Single, Manual (ICD-10-PCS; principal; 2023-08-28)
PROC: 3E033XZ Introduction of Vasopressor into Peripheral Vein, Percutaneous Approach (ICD-10-PCS; 2023-08-28)
PROC: 5A1955Z Respiratory Ventilation, Greater than 96 Consecutive Hours (ICD-10-PCS; 2023-08-28)
PROC: 0BH17EZ Insertion of Endotracheal Airway into Trachea, Via Natural or Artificial Opening (ICD-10-PCS; 2023-08-28)
PROC: 02HV33Z Insertion of Infusion Device into Superior Vena Cava, Percutaneous Approach (ICD-10-PCS; 2023-08-28)
PROC: 0DH67UZ Insertion of Feeding Device into Stomach, Via Natural or Artificial Opening (ICD-10-PCS; 2023-08-28)
PROC: 4A133R1 Monitoring of Arterial Saturation, Peripheral, Percutaneous Approach (ICD-10-PCS; 2023-08-28)
PROC: 3E03329 Introduction of Other Anti-infective into Peripheral Vein, Percutaneous Approach (ICD-10-PCS; 2023-08-28)
DX: T82.6XXA Infection and inflammatory reaction due to cardiac valve prosthesis, initial encounter (principal); I21.4 Non-ST elevation (NSTEMI) myocardial infarction; A41.1 Sepsis due to other specified staphylococcus; I50.21 Acute systolic (congestive) heart failure; J96.01 Acute respiratory failure with hypoxia; R65.21 Severe sepsis with septic shock; I63.9 Cerebral infarction, unspecified; I33.0 Acute and subacute infective endocarditis; I47.29 Other ventricular tachycardia; E87.1 Hypo-osmolality and hyponatremia; E87.20 Acidosis, unspecified; I13.0 Hypertensive heart and chronic kidney disease with heart failure and stage 1 through stage 4 chronic kidney disease, or unspecified chronic kidney disease; I50.32 Chronic diastolic (congestive) heart failure; N18.4 Chronic kidney disease, stage 4 (severe); N17.9 Acute kidney failure, unspecified; I42.9 Cardiomyopathy, unspecified; D68.9 Coagulation defect, unspecified; G93.40 Encephalopathy, unspecified; Z51.5 Encounter for palliative care; Z66 Do not resuscitate; Z11.52 Encounter for screening for COVID-19; R57.0 Cardiogenic shock; D69.6 Thrombocytopenia, unspecified; K21.9 Gastro-esophageal reflux disease without esophagitis; E11.22 Type 2 diabetes mellitus with diabetic chronic kidney disease; E03.9 Hypothyroidism, unspecified; D63.1 Anemia in chronic kidney disease; I48.0 Paroxysmal atrial fibrillation; Z87.891 Personal history of nicotine dependence; Z79.4 Long term (current) use of insulin; Z79.01 Long term (current) use of anticoagulants; Z79.890 Hormone replacement therapy; Z79.82 Long term (current) use of aspirin; Z79.899 Other long term (current) drug therapy; Y83.1 Surgical operation with implant of artificial internal device as the cause of abnormal reaction of the patient, or of later complication, without mention of misadventure at the time of the procedure
CPT/HCPCS: 0241U; 31500; 36415; 36569; 36600; 51702; 70450; 71045; 76770; 80047; 80048; 80053; 80076; 80202; 81001; 82330; 82803; 82947; 83605; 83735; 83880; 84100; 84145; 84484; 85014; 85025; 85520; 85610; 85730; 87040; 87070; 87077; 87186; 87205; 93005; 93010; 93312; 93325; 94002; 94003; 96365-59; 96366-59; 96367-59; 96368; 96375-59; 96376-59; 99285-25; A9270; C1751; C8929; C9113; J0330; J0456; J0696; J1250; J1644; J1815; J1940; J2060; J2250; J2270; J2704; J3010; J3370; J3475; J7030; J7050; J7060; J7070; Q9957